=== PATIENT | male | born 1960 | race Caucasian/White ===

== ENCOUNTER → 2019-02-07 08:07 | Outpatient (CLI) | payer OTHER, MEDICARE, SELFPAY ==
--- NOTE | 2019-02-07 08:09 | CA_ITS ---
PROCEDURE: 2-D M-mode and color Doppler study INDICATIONS FOR THE TEST: Chest pain COPD Heart Murmur Tobacco Smoking Palpitations Fatigue Syncope Edema HypertensionXDiabetes Mellitus Rheumatic Fever SOB GARCIA Obesity HyperlipidemiaX Family History HD Additional History AV DISEASE,PP,MR,TR,SSS,CIRILO PATIENT INFORMATION HEIGHT: 75 WEIGHT:242 GENDER: Male B/P:137/78 2-D/M-MODE INTERPRETATION: 2-D MEASUREMENTS OBSERVED VALUES IN CMS Right Ventricular Dimension (RVDd) 2.8 Interventricular Septum (Thickness)(IVsd) .9 Left Ventricular Internal Dimensions(LVIDd) 5.4 Left Ventricular Posterior Wall (Thickness)(LVPWd) 1.0 Aortic Root 3.5 Aortic Cusp Separation 1.1 Left Atrial Dimensions (LAD) 4.1 2D 1. Left atrium is mildly enlarged, left ventricle is normal size, mild concentric left ventricular hypertrophy, visually estimated ejection fraction 55% with no regional wall motion abnormality. 2. The right atrium and right ventricle are mildly enlarged with normal contractility, there is pacemaker lead seen right atrium and right ventricle. 3. The aortic valve is thickened and calcified with mild restriction the leaflet mobility. 4. The mitral and tricuspid valves are minimally thickened. 5. The pulmonic valve is poorly visualized. 6. No significant pericardial effusion noted. DOPPLER INTERROGATION: 1. The maximum aortic out flow velocity recorded study is 2.9 m/s, resulting in a mean gradient across valve of 16 mmHg this is consistent with mild aortic stenosis, there is mild aortic insufficiency present. 2. The mitral inflow velocity within normal range, there is no mitral stenosis, there is mild mitral regurgitation. Grade 1 diastolic dysfunction seen without tissue Doppler evidence of raised left atrial pressure. 3. Mild tricuspid regurgitation, tricuspid regurgitation jet velocity is inadequate for calculation of the right ventricular systolic pressure. CONCLUSION: 1. Mildly enlarged left atrium, normal left ventricular size, mild concentric left ventricular hypertrophy, visually estimated ejection fraction 55% with no regional wall motion abnormality, grade 1 diastolic dysfunction seen without tissue Doppler evidence of raised left atrial pressure. 2. Thickened and calcified aortic valve with mean gradient across valve of 16 mmHg represents mild aortic stenosis, there is mild aortic insufficiency. 3. Mild mitral and tricuspid regurgitation 4. No significant pericardial effusion noted.
--- NOTE | 2019-02-07 08:09 | CI_ITS ---
Cerebrovascular Exam Indications: Follow-up carotid 433.10. Hx of right ICA occlusion IMPRESSIONS 1. The bilateral vertebral arteries are patent with normal antegrade flow. 2. Study suggests 100% stenosis involving the right internal carotid artery. 3. Study suggests less than 20% stenosis involving the left internal carotid artery. History: Risk factors: Extobacco use. Hypertension. Hyperlipidemia. Labs, prior tests, procedures, and surgery: Right endarterectomy. 2002 Left endarterectomy. 2018 Labs, prior tests, procedures, and surgery: Right endarterectomy. 2002 Left endarterectomy. 2017 Carotid duplex study. Complete study and Doppler flow study including spectral analysis, color and shearer scale imaging. Height: Height: 190.5cm. Height: 75in. Weight: Weight: 109.8kg. Weight: 241.5lb. Body mass index: BMI: 30.2kg/m^2. Body surface area: BSA: 2.43m^2. Location: Vascular laboratory. Patient status: Outpatient. Tables: Arterial flow: + +--------+--------+ Location V sys V ed + +--------+--------+ Right CCA - proximal 161cm/s 24.4cm/s + +--------+--------+ Right CCA - distal 119cm/s 15.7cm/s + +--------+--------+ Right ECA 182cm/s -------- + +--------+--------+ Right vertebral 87.5cm/s 25.5cm/s + +--------+--------+ Left CCA - proximal 131cm/s 32.5cm/s + +--------+--------+ Left CCA - distal 121cm/s 24.1cm/s + +--------+--------+ Left ECA 185cm/s 30.6cm/s + +--------+--------+ Left ICA - proximal 77.3cm/s 23.1cm/s + +--------+--------+ Left ICA - mid 83cm/s 31cm/s + +--------+--------+ Left ICA - distal 69.5cm/s 27.9cm/s + +--------+--------+ Left vertebral 55.4cm/s 17.4cm/s + +--------+--------+ Velocity ratios: + + + + Left, V sys Left, V ed + + + + Max ICA/dist CCA 0.69 1.29 + + + + (Report amended ) Electronically signed by: Tae Tracy [id number]
== END ==
PROVIDERS: PCP Family Medicine; Visit Provider Internal Medicine
DX: I65.23 Occlusion and stenosis of bilateral carotid arteries (principal); I34.0 Nonrheumatic mitral (valve) insufficiency; I07.1 Rheumatic tricuspid insufficiency; G47.33 Obstructive sleep apnea (adult) (pediatric); I10 Essential (primary) hypertension; I11.9 Hypertensive heart disease without heart failure; I49.5 Sick sinus syndrome; Z95.0 Presence of cardiac pacemaker; Z79.899 Other long term (current) drug therapy; I35.8 Other nonrheumatic aortic valve disorders
CPT/HCPCS: 93306; 93880

== ENCOUNTER → 2021-12-15 11:37 | Outpatient (CLI) | payer OTHER, MEDICARE, SELFPAY ==
[2021-12-15 12:45] LABS: Basophils # 0.1 K/mm3 (0-0.2); Basophils % 1.2 % (0.1-2.0); Eosinophils # 0.3 K/mm3 (0.0-0.4); Eosinophils % 2.5 % (0.1-12.0); Hematocrit 37.9 % (42.0-52.0); Hemoglobin 12.2 g/dL (14.1-18.0); Lymphocytes # 2.3 K/mm3 (0.7-4.5); Lymphocytes % 19.9 % (10-50); Mean Corpuscular HGB Conc 32.3 g/dL (31.8-35.4); Mean Corpuscular Hemoglobin 29.6 pg (27.0-31.2); Mean Corpuscular Volume 91.8 fl (80-94); Mean Platelet Volume 7.7 fl (7.4-10.4); Monocytes # 0.8 K/mm3 (0.1-1.0); Monocytes % 7.3 % (1.7-9.3); Neutrophils # 7.8 K/mm3 (1.8-7.8); Neutrophils % 69.1 % (37.0-80.0); Platelet Count 332 K/mm3 (142-424); Red Blood Count 4.12 M/mm3 (4.60-6.20); Red Cell Distribution Width 14.2 % (11.5-17.5); White Blood Count 11.4 K/mm3 (4.8-10.8)
[2021-12-15 12:57] LABS: Chloride 101 mmol/L (98-107); Potassium 4.3 mmoL/L (3.5-5.1); Sodium 138 mmol/L (136-145)
[2021-12-15 12:59] LABS: Bilirubin,Unconjugated 0.3 mg/dL (0.0-1.1); Blood Urea Nitrogen 19 mg/dl (9-20); Estimated Glomerular Filt Rate 99 ml/min (>60); GFR (African American) 119 ML/MIN (>60)
[2021-12-15 13:00] LABS: Alanine Aminotransferase 16 U/L (12-78); Alkaline Phosphatase 84 U/L (38-126); Anion Gap 9.3 mEq/L (5-15); Aspartate Amino Transferase 18 U/L (17-59); Bilirubin,Direct 0.1 mg/dl (0.0-0.4); Bilirubin,Indirect 0.3 mg/dL (0.0-0.9); Bilirubin,Total 0.4 mg/dl (0.2-1.3); Calcium 9.7 mg/dl (8.4-10.2); Carbon Dioxide 32 mmol/L (22.0-30.0); Cholesterol 252 mg/dl (140-200); Glucose 140 mg/dl (74-100); HDL Cholesterol 42 mg/dl (40-60); Magnesium 1.9 mg/dl (1.6-2.3); Total Protein,Serum 6.6 g/dl (6.3-8.2); Triglycerides 192 mg/dl (30-150); VLDL Cholesterol 38 mg/dL (0-40)
[2021-12-15 13:12] LABS: Direct LDL Cholesterol 159.29 mg/dL (100-129)
[2021-12-15 13:17] LABS: Free T4 (Free Thyroxine) 1.13 ng/dl (0.78-2.19)
[2021-12-15 13:31] LABS: Thyroid Stimulating Hormone 1.55 uIU/mL (0.465-4.68)
== END ==
PROVIDERS: Visit Provider Nurse Practitioner
DX: I07.1 Rheumatic tricuspid insufficiency (principal); I10 Essential (primary) hypertension; I11.9 Hypertensive heart disease without heart failure; I34.0 Nonrheumatic mitral (valve) insufficiency; I35.9 Nonrheumatic aortic valve disorder, unspecified; I49.5 Sick sinus syndrome; I65.29 Occlusion and stenosis of unspecified carotid artery; I67.2 Cerebral atherosclerosis; G47.33 Obstructive sleep apnea (adult) (pediatric)
CPT/HCPCS: 36415; 80048; 80061; 80076; 83735; 84439; 84443; 85025

== ENCOUNTER → 2022-06-09 09:41 | Outpatient (CLI) | payer MEDICARE, MEDICAID, SELFPAY ==
--- NOTE | 2022-06-09 09:42 | CA_ITS ---
FINAL REPORT TECHNIQUE: Grayscale, color Doppler and duplex Doppler ultrasound of the kidneys, aorta and renal arteries was performed. Multiple velocities were measured. CLINICAL HISTORY: HTN FINDINGS: Aorta velocity: 46 cm/sec Right kidney: 11.5 cm. No evidence of hydronephrosis or mass. Right intrarenal RI: .56 Right renal artery velocity: 150 cm/sec. Right RAR (Renal artery-Aortic Ratio): 3.25 Left Kidney: 12.3 cm. No evidence of hydronephrosis or mass. Left intrarenal RI: .70 Left renal artery velocity: 170 cm/sec. Left RAR (Renal Artery-Aortic Ratio): 3.67 IMPRESSION: Greater than 60% bilateral renal artery stenosis. Recommend CTA or catheter angiogram to better evaluate. Reviewed, Interpreted and Dictated by Salinas Kohli III, MD Transcribed by Delia Aldridge Authenticated and [facility]
--- NOTE | 2022-06-09 10:41 | US_ITS ---
FINAL REPORT TECHNIQUE: Sonographic images were obtained of the retroperitoneum. CLINICAL HISTORY: I07.1 - Rheumatic tricuspid insufficiency FINDINGS: The right kidney measures 11.3 cm. The left kidney measures 11.7 cm. There is a lower pole left renal cyst measuring up to 3 cm. The spleen is mildly enlarged and measures 13.9 cm. IMPRESSION: Left renal cyst. Reviewed, Interpreted and Dictated by Salinas Kohli III, MD Transcribed by Tj Brower Authenticated and [facility]
== END ==
PROVIDERS: PCP Family Medicine; Visit Provider Physician Assistant
DX: E78.2 Mixed hyperlipidemia (principal); G47.33 Obstructive sleep apnea (adult) (pediatric); I07.1 Rheumatic tricuspid insufficiency; I34.0 Nonrheumatic mitral (valve) insufficiency; I35.9 Nonrheumatic aortic valve disorder, unspecified; I49.5 Sick sinus syndrome; I65.23 Occlusion and stenosis of bilateral carotid arteries; Z95.0 Presence of cardiac pacemaker; I10 Essential (primary) hypertension
CPT/HCPCS: 76770; 93976

== ENCOUNTER 2022-06-23 08:25 | Day surgery (SDC) | payer MEDICARE, MEDICAID, SELFPAY ==
[2022-06-23] VITALS (14 sets, daily range): BP systolic 132–190; BP diastolic 81–111; PULSE 60; RESP 13–20; TEMP 36.8; O2SAT 95–99; BMI 29.2
--- NOTE | 2022-06-23 07:54 | IR_ITS ---
APPROVED REPORT Patient Location: Outpatient Center Mgr: CAMDEN Nieves RT (R) PROCEDURES Bilateral selective renal angiography INDICATION Severe hypertension, Abnormal renal duplex Informed consent was obtained prior to the procedure. COMPLICATIONS None Estimated Blood Loss: Less than 10 mls TECHNIQUE 1% lidocaine used to anesthetize the right femoral groin. The right femoral artery was accessed via the Seldinger technique. A 4 Emirati sheath was placed in the right femoral artery. The JR4 catheter was used to selectively intubate each renal artery. At the end of the diagnostic angiogram the patient was transferred to the postop holding area in stable condition for sheath removal. ANGIOGRAPHIC RESULTS Bilateral renal arteries are singular normal IMPRESSION Normal renal arteries PLAN 1. Continue treatment for essential hypertension Electronically signed by : Arash Kim MD 06/23/2022 11:15:16
[2022-06-23 09:01] LABS: Basophils # 0.1 K/mm3 (0-0.2); Basophils % 0.7 % (0.1-2.0); Eosinophils # 0.2 K/mm3 (0.0-0.4); Eosinophils % 1.3 % (0.1-12.0); Hematocrit 41.1 % (42.0-52.0); Hemoglobin 13.2 g/dL (14.1-18.0); Lymphocytes # 2.3 K/mm3 (0.7-4.5); Mean Corpuscular HGB Conc 32.1 g/dL (31.8-35.4); Mean Corpuscular Hemoglobin 30.9 pg (27.0-31.2); Mean Corpuscular Volume 96.2 fl (80-94); Mean Platelet Volume 8.1 fl (7.4-10.4); Monocytes # 0.8 K/mm3 (0.1-1.0); Monocytes % 7.2 % (1.7-9.3); Neutrophils # 7.7 K/mm3 (1.8-7.8); Neutrophils % 69.6 % (37.0-80.0); Platelet Count 276 K/mm3 (142-424); Red Blood Count 4.27 M/mm3 (4.60-6.20); Red Cell Distribution Width 12.5 % (11.5-17.5); White Blood Count 11.1 K/mm3 (4.8-10.8)
[2022-06-23 09:25] LABS: Chloride 102 mmol/L (98-107)
[2022-06-23 09:26] LABS: Sodium 143 mmol/L (136-145)
[2022-06-23 09:29] LABS: Blood Urea Nitrogen 25 mg/dl (9-20); Calcium 9.2 mg/dl (8.4-10.2); Carbon Dioxide 32 mmol/L (22.0-30.0); Creatinine Clearance Estimated 131 mL/min (50-200); Estimated Glomerular Filt Rate 86 ml/min (>60); GFR (African American) 104 ML/MIN (>60); Glucose 142 mg/dl (74-100)
== END 2022-06-23 13:59 | disposition home or self-care (01) ==
PROVIDERS: PCP Family Medicine; Visit Provider Internal Medicine
DX: E78.2 Mixed hyperlipidemia (principal); G47.33 Obstructive sleep apnea (adult) (pediatric); I07.1 Rheumatic tricuspid insufficiency; I11.9 Hypertensive heart disease without heart failure; I34.0 Nonrheumatic mitral (valve) insufficiency; I35.9 Nonrheumatic aortic valve disorder, unspecified; I65.23 Occlusion and stenosis of bilateral carotid arteries; I67.2 Cerebral atherosclerosis; I70.1 Atherosclerosis of renal artery; Z79.899 Other long term (current) drug therapy; I49.5 Sick sinus syndrome; Z95.0 Presence of cardiac pacemaker
CPT/HCPCS: 36252; 36415; 80048; 85025; 99152; C1725; C1769; J1644; Q9967

== ENCOUNTER → 2022-10-22 10:55 | Outpatient (CLI) | payer MEDICARE, MEDICAID, SELFPAY ==
[2022-10-22 12:05] LABS: Anion Gap 10.5 mEq/L (5-15); Blood Urea Nitrogen 19 mg/dl (9-20); Calcium 9.2 mg/dl (8.4-10.2); Carbon Dioxide 30 mmol/L (22.0-30.0); Chloride 102 mmol/L (98-107); Estimated Glomerular Filt Rate 76 ml/min (>60); GFR (African American) 92 ML/MIN (>60); Glucose 118 mg/dl (74-100); Potassium 4.5 mmoL/L (3.5-5.1); Sodium 138 mmol/L (136-145)
== END ==
PROVIDERS: PCP Family Medicine; Visit Provider Nurse Practitioner Family
DX: E78.2 Mixed hyperlipidemia (principal); I10 Essential (primary) hypertension; I11.9 Hypertensive heart disease without heart failure; I65.23 Occlusion and stenosis of bilateral carotid arteries; Z95.0 Presence of cardiac pacemaker
CPT/HCPCS: 36415; 80048

== ENCOUNTER → 2022-10-26 15:02 | Outpatient (CLI) | payer MEDICARE, MEDICAID, SELFPAY ==
--- NOTE | 2022-10-26 15:03 | CA_ITS ---
FINAL REPORT CLINICAL HISTORY: DAT,PRIOR LT ENDARDECTOMY,HX TOTAL OCCLUSION RT ICA,HTN FINDINGS: An ultrasound of the carotid arteries was performed. Duplex Doppler evaluation with spectral analysis was performed. The peak systolic velocity of the right common carotid artery is 52 cm/s. There is occlusion of the ICA. The right vertebral artery is patent with antegrade flow. The peak systolic velocity of the left common carotid artery is 99 cm/s. The peak systolic velocity of the left internal carotid artery is 98 cm/s and end diastolic velocity 40 cm/s. A small amount of plaque is present. The left external carotid artery is patent. The left vertebral artery is patent with antegrade flow. ICA/CCA ratio: 1.1 Bilateral patent vertebral arteries with antegrade flow. IMPRESSION: Occlusion of the right ICA. Less than 50% left carotid stenosis. Reviewed, Interpreted and Dictated by Francisco Valentino MD Transcribed by Tj Brower Authenticated and [facility]
== END ==
PROVIDERS: PCP Family Medicine; Visit Provider Physician Assistant
DX: E78.2 Mixed hyperlipidemia (principal); I10 Essential (primary) hypertension; I11.9 Hypertensive heart disease without heart failure; I65.23 Occlusion and stenosis of bilateral carotid arteries; R09.89 Other specified symptoms and signs involving the circulatory and respiratory systems; Z95.0 Presence of cardiac pacemaker
CPT/HCPCS: 93880

== ENCOUNTER 2023-12-08 10:25 | Outpatient (CLI) | payer MEDICARE, MEDICAID, SELFPAY ==
--- NOTE | 2023-12-08 10:25 | CA_ITS ---
FINAL REPORT CLINICAL HISTORY: Right ICA occlusion, H/o of bilateral CEA's COMPARISON: 10/26/2022 FINDINGS: RIGHT CAROTID: CCA PSV -65 cm/sec The right internal carotid artery is occluded, as was seen on the prior ultrasound of 10/26/2022 Comments: Known occlusion of the right internal carotid artery. LEFTCAROTID: CCA PSV -150 cm/sec ICA PSV -102 cm/sec ICA/CCA PSV ratio -1.1. Comments: Moderate soft plaque disease is noted. Antegrade flow is seen within the vertebral arteries. IMPRESSION: Known right internal carotid artery occlusion. Less than 50% stenosis left carotid artery, with moderate soft plaque. Antegrade flow bilateral vertebral arteries Reviewed, Interpreted and Dictated by Rogelio Gaona MD Transcribed by hSahla Agrawal Authenticated and [facility]
== END 2023-12-08 23:59 | disposition home or self-care (01) ==
LOC: RT 10:25
PROVIDERS: Visit Provider Nurse Practitioner Family
DX: I65.23 Occlusion and stenosis of bilateral carotid arteries (principal); Z87.891 Personal history of nicotine dependence
CPT/HCPCS: 93880

== ENCOUNTER 2024-06-26 13:45 | Outpatient (CLI) | payer MEDICARE, MEDICAID, SELFPAY ==
[2024-06-26 14:11] LABS: Basophils # 0.1 K/mm3 (0-0.2); Basophils % 0.6 % (0.1-2.0); Eosinophils # 0.1 K/mm3 (0.0-0.4); Eosinophils % 0.9 % (0.1-12.0); Hematocrit 40.3 % (42.0-52.0); Hemoglobin 13.9 g/dL (14.1-18.0); Lymphocytes # 2.5 K/mm3 (0.7-4.5); Lymphocytes % 24.2 % (10-50); Mean Corpuscular HGB Conc 34.6 g/dL (31.8-35.4); Mean Corpuscular Hemoglobin 32.1 pg (27.0-31.2); Mean Corpuscular Volume 92.9 fl (80-94); Mean Platelet Volume 7.9 fl (7.4-10.4); Monocytes # 0.9 K/mm3 (0.1-1.0); Monocytes % 8.4 % (1.7-9.3); Neutrophils # 6.8 K/mm3 (1.8-7.8); Neutrophils % 65.8 % (37.0-80.0); Platelet Count 265 K/mm3 (142-424); Red Blood Count 4.33 M/mm3 (4.60-6.20); Red Cell Distribution Width 12.7 % (11.5-17.5); White Blood Count 10.3 K/mm3 (4.8-10.8)
[2024-06-26 14:51] LABS: Alanine Aminotransferase 27 U/L (12-78); Albumin Level 4.6 g/dl (3.5-5.0); Alkaline Phosphatase 86 U/L (38-126); Anion Gap 12.2 mEq/L (5-15); Aspartate Amino Transferase 23 U/L (17-59); Bilirubin,Direct 0.3 mg/dl (0.0-0.4); Bilirubin,Indirect 0.3 mg/dL (0.0-0.9); Bilirubin,Total 0.6 mg/dl (0.2-1.3); Bilirubin,Unconjugated 0.3 mg/dL (0.0-1.1); Blood Urea Nitrogen 17 mg/dl (9-20); Calcium 9.4 mg/dl (8.4-10.2); Carbon Dioxide 30 mmol/L (22.0-30.0); Chloride 103 mmol/L (98-107); Chol/HDL Ratio 3.5 (1-3.5); Cholesterol 137 mg/dl (140-200); Estimated Glomerular Filt Rate 86 ml/min (>60); GFR (African American) 103 ML/MIN (>60); Glucose 123 mg/dl (74-100); HDL Cholesterol 39 mg/dl (40-60); Potassium 4.2 mmoL/L (3.5-5.1); Sodium 141 mmol/L (136-145); Total Protein,Serum 7.1 g/dl (6.3-8.2); Triglycerides 201 mg/dl (30-150); VLDL Cholesterol 40 mg/dL (0-40)
[2024-06-26 15:02] LABS: Direct LDL Cholesterol 73.39 mg/dL (100-129)
[2024-06-26 15:08] LABS: Free T4 (Free Thyroxine) 1.04 ng/dl (0.78-2.19)
[2024-06-26 15:21] LABS: Thyroid Stimulating Hormone 1.71 uIU/mL (0.465-4.68)
== END 2024-06-26 23:59 | disposition home or self-care (01) ==
LOC: LAB 13:48
PROVIDERS: PCP Family Medicine; Visit Provider Physician Assistant
DX: I10 Essential (primary) hypertension (principal); E78.2 Mixed hyperlipidemia; I65.23 Occlusion and stenosis of bilateral carotid arteries; I67.2 Cerebral atherosclerosis
CPT/HCPCS: 36415; 80048; 80061; 80076; 84439; 84443; 85025

== ENCOUNTER 2025-07-26 12:43 | Outpatient (CLI) | payer MEDICARE, MEDICAID, SELFPAY ==
--- OUTSIDE RECORDS SUMMARY | 2025-07-10 13:15 | XMS_ITS | Encounter Summary ---
Author Organization [facility] Address [address] [place] [address] Care Team Providers Care Substation Maintenance Technician Name Role Phone JudeJohn rodriguez Primary Care Provider [phone] Melissa Barron MD Unavailable Eli Echevarria MA Unavailable Unavailable Reason for Visit * Reason Comments Back Pain Encounter Details Date Type Department Care Team (Late st Contact Info) Description 07/10/2025 1:15 PM EST Treatment [facility] [address] [address], [address] [place] [address] Yue Kendrick MD [address] [facility] [address] [place] [address] Osteoarthritis of spine with radiculopathy, lumbar region Social History Tobacco Use Types Packs/Day Years Used Date Smoking Tobacco: Former Cigarettes 4 25 0 11/28/1982 - 11/29/2007 Smokeless Tobacco: Never Comments:quit 2 years ago Alcohol Use Standard Drinks/Week Comments No 0 (1 standard drink = 0.6 oz pur e alcohol) PHQ-2 Answer Date Recorded PHQ-2 SCORE 0 07/10/2025 Sex and Gender Information Value Date Recorded Sex Assigned at Not on file Legal Sex Male 10:01 PM EST Gender Identity Not on file Sexual Orientation Not on file Occupation Industry Job Start Date Job End Date disability Not on file Not on file Not on file documented as of this encounter Last Filed Vital Signs Vital Sign Reading Time Taken Comments Blood Pressure 167/79 07/10/2025 1:16 PM EST Pulse 60 07/10/2025 1:16 PM EST Temperature - - Respiratory Rate - - Oxygen Saturation - - Inhaled Oxygen Concentration - - Weight 114.3 kg (252 lb) 07/10/2025 1:15 PM EST Height 190.5 cm (6' 3 ) 07/10/2025 1:15 PM EST Body Mass Index 31.5 07/10/2025 1:15 PM EST documented in this encounter Functional Status documented as of this encounter Mental Status * Question Answer Entry Date Author Pain Level 2 07/10/2025 1:15 PM EST Thomp son, CELESTINE Reeder documented in this encounter Progress Notes * Yue Kendrick MD - 07/10/2025 1:15 PM EST RE: Marvin Staton : 1960 REFERRING PROVIDER: No ref. provider found PRIMARY CARE PROVIDER: John Schaefer DO HISTORY OF PRESENT ILLNESS: Mr. Staton was seen in follow up at the [facility] pain center. LUIS MIGUEL report reviewed. He returns today complaining of pain in the lower lumbar region. Most of his pain is in the axial spine. Pain is associated with stiffness and spasms. He continues to benefit from the hydrocodone. Hedenies any side effects from his medications. Current medication regimen keeps him functional. He is ambulating without an assistive device. He is independent with ADLs. He denies any change in his medications. Exacerbating factors include:lifting, Standing, walking, overhead activity Alleviating Factors: medications, rest, heat, change in position Since his last visit, he denies any falls or loss of balance. Since his last visit, he denies progressive weakness or change in bowel bladder function. pain scale current is 2/10. Worst pain: 6/10. Least pain: 2/10. Amount of pain relief obtained from current pain relievers enough to make a real difference: yes Prescription monitoring report: indicate appropriate behavior EMG 02/13/20 B/L L4/5 LR Past Medical History: Diagnosis Date Atherosclerosis Bradycardia CAD (coronary artery disease) Carotid artery stenosis COVID-2020 History of home oxygen therapy 1-1.5 LITERS PRN HLD (hyperlipidemia) HTN (hypertension) Lumbago Sleep apnea CPAP Stroke (HCC) T.I.A. Past Surgical History: Procedure Laterality Date AORTOGRAM WITH RUNOFF N/A 06/19/2010 AORTOGRAM WITH RUNOFF performed by Arash Kim MD at [facility] RN POST PARTUM HX CARDIAC CATHETERIZATION HX CAROTID ENDARTERECTOMY HX PERMANENT PACEMAKER LEFT HEART CATH N/A 06/19/2010 LEFT HEART CATH performed by Arash Kim MD at [facility] RN POST PARTUM Family History Problem Relation Name Age of Onset Heart Disease Mother cabg Cancer Sister lung cancer Cancer Brother lung cancer Cancer Brother lung cancer Heart Disease Brother OR Hypertension Daughter Social History Socioeconomic History Marital status: Spouse name: Not on file Number of children: Not on file Years of education: Not on file Highest education level: Not on file Occupational History Occupation: disability Comment: 2004 Tobacco Use Smoking status: Former Current packs/day: 0.00 Average packs/day: 4.0 packs/day for 25.0 years (100.0 ttl pk-yrs) Types: Cigarettes Start date: 11/28/1982 Quit date: 11/29/2007 Years since quittin.6 Smokeless tobacco: Never Tobacco comments: quit 2 years ago Substance and Sexual Activity Alcohol use: No Drug use: No Sexual activity: Not on file Other Topics Concern Not on file Social History Narrative Not on file Social Drivers of Health Financial Resource Strain: Not on file Food Insecurity: Not on file Transportation Needs: Not on file Physical Activity: Not on file Stress: Not on file Social Connections: Not on file Intimate Partner Violence: Not on file Housing Stability: Not on file Current Outpatient Medications Medication Sig Dispense Refill HYDROcodone-acetaminophen (NORCO) 7.5-325 mg per tablet Take 1 Tablet by mouth Every 6 hours as needed for Pain for up to 30 days. Do not fill until 06/15/25 120 Tablet 0 amLODIPine (NORVASC) 5 mg tablet Take 5 mg by mouth Once Daily. potassium citrate (UROCIT-K) 10 mEq Take 10 mEq by mouth Three times a day. sucralfate (CARAFATE) 1 gram tablet Take 1 g by mouth Twice a day. folic acid (FOLVITE) 1 mg tablet Take 1 mg by mouth Once Daily. losartan (COZAAR) 25 mg Take 25 mg by mouth Once Daily. ipratropium/albuterol sulfate (COMBIVENT IN) Take by inhalation. carvedilol (COREG) 6.25 mg tablet Take 25 mg by mouth Twice a day. atorvastatin (LIPITOR) 80 mg tablet Take 1 Tab by mouth Daily. 30 Tab 9 No current facility-administered medications for this visit. No Known Allergies Review of Systems: Constitutional: negative for fevers, chills Eyes: negative for visual disturbance, redness Ears, nose, mouth, throat, and face: negative for epistaxis, sore throat Respiratory: negative for cough, dyspnea on exertion Cardiovascular: negative for chest pain, palpitations Gastrointestinal: negative for nausea, vomiting Genitourinary:negative for dysuria, urinary incontinence Integument/breast: negative for rash, skin color change Hematologic/lymphatic: negative for easy bruising, bleeding Musculoskeletal + for myalgias, arthralgias Neurological: negative for dizziness, gait problems Behavioral/Psych: negative for anxiety and depression PHYSICAL EXAM: Vitals: There were no vitals taken for this visit. BODY HABITUS: Well developed, well nourished. MENTAL STATUS: Alert, oriented and cooperative. Affect is full. HEAD: Normocephalic, atraumatic. No tenderness, spasm, or asymmetry. CERVICAL SPINE: Straight with a normal lordosis. Range of motion is full and painful with extension. There is mild tenderness to palpation. Positive spasms. SHOULDERS: Non-tender. Contour is symmetric. Scapular placement is symmetric. Range of motion is full and painless in all planes. There is no tenderness to palpation. There are no signs of impingement. UPPER EXTREMITIES: Non tender to palpation bilaterally. Joint alignment is normal without effusion.Elbow, wrist, and hand range of motion is full and painless bilaterally. THORACIC SPINE: Mod tenderness. + spasm. LUMBAR SPINE: Forward flexion to 65 degrees is painful. Extension to 20 degrees past neutral is painful. Lateral bending and rotation is restricted and painful. There is mild tenderness to palpation.Agustín's test is negative bilaterally. Facet provocative maneuvers are positive bilaterally. Positive spasms. LOWER EXTREMITIES: No tenderness to palpation. There is no edema. There is no atrophy. There is no asymmetry. Hip, knee, and ankle range of motion is full and painless bilaterally. NEUROLOGIC: Muscle tone is normal. There is no ataxia or dysmetria. Muscle stretch reflexes are 1+ and symmetric at the biceps, triceps, and brachioradialis, patella, and achilles. Muscle strength is5/5 in the upper and lower extremities muscle groups bilaterally. SLR is + on the right. Hernández's is negative bilaterally. Spurling's is negative bilaterally. Phalen's is negative bilaterally. Tinel's is negative bilaterally. Sensory exam shows deficits to light touch, pinprick L4/5 dermatome GAIT: Normal base of support. Normal dorsiflexion. Swing-through pattern. No antalgia. No assistivedevice. IMPRESSIONS: 1. History of HNP L5-S1 2. Lumbar radiculitis 3. Lumbar DDD 4. Status post right CEA 5. Sacroiliac pain 6. Spasms 7. Facet disorder RECOMMENDATIONS: 1. DIAGNOSTIC STUDIES: None 2. MEDICATIONS:D/C MS Contin 15 mg one tablet p.o. Q.8 hours (nationwide shortage). [place] 7.5 mg every 6 hours LUIS MIGUEL report reviewed. UDS 03/13/25 consistent. 3. INJECTIONS: not a candidate for injections as he is on anticoagulants with HX carotid stenosis 4. PHYSICAL THERAPY: Continue home exercise program as tolerated. 5. REFERRALS: None 6. SCHEDULING: Follow up in 2 months. Yue Kendrick M.D., MD 07/09/2025 6:03 AM documented in this encounter Plan of Treatment Upcoming Encounters Date Type Department Care Team (Late st Contact Info) Description 09/06/2025 2:00 PM EST Treatment [facility] [address] [place] [address], [address] Floor, [address] [place] [address] Yue Kendrick MD [address] [facility] [address] [place] [address] documented as of this encounter Visit Diagnoses Diagnosis Osteoarthritis of spine with radiculopathy, lumbar region documented in this encounter Care Teams Substation Maintenance Technician Relationship Specialty Start Date End Date John Schaefer DO [address] [place] [address] PCP - General Family Medicine 01/24/10 Melissa Barron MD [address] [place] [address] JUANY OLIVARES [id number] Pulmonary Disease 06/16/22 Eli Echevarria MA 08/11/22 documented as of this encounter
--- OUTSIDE RECORDS SUMMARY | 2025-07-26 12:52 | XMS_ITS | Encounter Summary ---
Author Organization [facility] Address [address] [place] [address] Care Team Providers Care Celebrity Manager Name Role Phone John Schaefer Primary Care Provider [phone] Melissa Barron MD Unavailable Eli Echevarria MA Unavailable Unavailable Reason for Visit * Reason Onset Date Comments Medication - Prior Authorization 09/19/2018 Encounter Details Date Type Department Care Team (Late st Contact Info) Description 09/19/2018 Telephone [facility] [address], [address] [place] [address] Yue Kendrick MD [address] [facility] [place] [address] [address] Medication - Prior Authorization Social History Tobacco Use Types Packs/Day Years Used Date Smoking Tobacco: Former Cigarettes 4 25 0 03/28/1986 - 03/28/2011 Smokeless Tobacco: Never Comments:quit 2 years ago Alcohol Use Standard Drinks/Week Comments No 0 (1 standard drink = 0.6 oz pur e alcohol) Sex and Gender Information Value Date Recorded Sex Assigned at Not on file Legal Sex Male 10:01 PM EST Gender Identity Not on file Sexual Orientation Not on file Occupation Industry Job Start Date Job End Date disability Not on file Not on file Not on file documented as of this encounter Miscellaneous Notes * Telephone Encounter - Namrata Denise RN - 09/19/2018 11:16 AM EST No answer. PA faxed to [facility]. * Telephone Encounter - Jose Francisco Tapia - 09/19/2018 8:07 AM EST Pt called in wanting to speak to a nurse. Wants a return call at [phone]. Calling to check on status of PA on morphine requested on 09/13/18. Please advise. documented in this encounter Plan of Treatment Upcoming Encounters Date Type Department Care Team (Late st Contact Info) Description 09/06/2025 2:00 PM EST Treatment [facility] [address] [place] [address], 2nd Floor, [address] [place] [address] Yue Kendrick MD [address] [facility] [address] [place] [address] [address] documented as of this encounter Visit Diagnoses Not on filedocumented in this encounter Care Teams Celebrity Manager Relationship Specialty Start Date End Date John Schaefer DO [address] [place] [phone] PCP - General Family Medicine 01/24/10 Melissa Barron MD [address] [place] [address] Pulmonary Disease 06/16/22 Eli Echevarria MA 08/11/22 documented as of this encounter
--- OUTSIDE RECORDS SUMMARY | 2025-07-26 12:52 | XMS_ITS | Encounter Summary ---
Author Organization [facility] Address [address] [id number] Care Team Providers Care Brine Tank Operator Name Role Phone John Schaefer Primary Care Provider [phone] Melissa Barron MD Unavailable Eil Echevarria MA Unavailable Unavailable Reason for Visit * Reason Onset Date Comments Medication - Prior Authorization 12/30/2017 Encounter Details Date Type Department Care Team ([facility] Contact Info) Description 12/30/2017 Telephone [facility] [address], [address] [place] [phone] Namrata Denise, piano assembler - Prior Authorization Social History Tobacco Use [...] encounter Miscellaneous Notes * Telephone Encounter - Coleen Guerrero - 01/17/2018 2:48 PM EDT Try [facility] documented in this encounter Plan of Treatment Upcoming Encounters Date Type Department Care Team ([facility] Contact Info) Description 09/06/2025 2:00 PM EST [facility] [address] Medical [place] A, 2nd Floor, [address] [place] [address] Yue Kendrick MD [address] [facility] [address] 2ND FLO[address] [place], [place] [id number] documented as of this encounter Visit Diagnoses Not on filedocumented in this encounter Care Teams Brine Tank Operator Relationship Specialty Start Date End Date John Schaefer DO [address] [place] [phone] PCP - General Family Medicine 01/24/10 Melissa Barron MD [address] [place] [address] Pulmonary Disease 06/16/22 Eli Echevarria MA 08/11/22 documented as of this encounter
--- OUTSIDE RECORDS SUMMARY | 2025-07-26 12:52 | XMS_ITS | Encounter Summary ---
Author Organization [facility] Address [address] [place] [address] Care Team Providers Care Statistical Developer Name Role Phone JudeJohn rodriguez Primary Care Provider [phone] Melissa Barron MD Unavailable Eli Echevarria MA Unavailable Unavailable Encounter Details Date Type Department Care Team (Late Contact Info) Description 06/16/2011 Telephone [facility] [address], [address] [place] [address] Amanda Wang LPN Social History Tobacco Use Types Packs/Day Years [...] encounter Miscellaneous Notes * Telephone Encounter - Amanda Wang - 06/16/2011 11:32 AM EST Pt's aware that scripts are ready for parts picker documented in this encounter Plan of Treatment Upcoming Encounters Date Type Department Care Team (Late Contact Info) Description 09/06/2025 2:00 PM EST Treatment [facility] [address] [facility], 2nd Floor, [address] [place] [address] Yue Kendrick MD [address] [facility] [address] A 2ND [place] [address] documented as of this encounter Visit Diagnoses Not on filedocumented in this encounter Care Teams Statistical Developer Relationship Specialty Start Date End Date John Schaefer DO [address] [place] [phone] PCP - General Family Medicine 01/24/10 Melissa Barron MD [address] [place] [address] Pulmonary Disease 06/16/22 Eli Echevarria MA 08/11/22 documented as of this encounter
--- OUTSIDE RECORDS SUMMARY | 2025-07-26 12:52 | XMS_ITS | Encounter Summary ---
Author Organization [facility] Address [address] [place] [address] Care Team Providers Care Lead Manufacturing Technician Name Role Phone John Schaefer Primary Care Provider [phone] Melissa Barron MD Unavailable Eli Echevarria MA Unavailable Unavailable Encounter Details Date Type Department Care Team (Late Contact Info) Description 03/13/2019 Telephone [facility] [address] [facility], 2nd Floor, [address] [place] [address] Lilli Henriquez RN Social History Tobacco Use Types Packs/Day Years [...] on file documented as of this encounter Plan of Treatment Upcoming Encounters Date Type Department Care Team (Late Contact Info) Description 09/06/2025 2:00 PM EST Treatment [facility] [address] [facility], 2nd Floor, [address] [place] [address] Yue Kendrick MD [address] [place] [place] [address] [place] [address] documented as of this encounter Visit Diagnoses Not on filedocumented in this encounter Care Teams Lead Manufacturing Technician Relationship Specialty Start Date End Date John Schaefer DO [address] [place] [phone] PCP - General Family Medicine 01/24/10 Melissa Barron MD [address] [place] [address] Pulmonary Disease 06/16/22 lEi Echevarria MA 08/11/22 documented as of this encounter
--- OUTSIDE RECORDS SUMMARY | 2025-07-26 12:52 | XMS_ITS | Encounter Summary ---
Author Organization [facility] Address [address] [id number] Care Team Providers Care Link And Link Knitting Machine Operator Name Role Phone JudeJohn rodriguez Primary Care Provider [phone] Melissa Barron MD Unavailable Eli Echevarria MA Unavailable Unavailable Reason for Visit * Reason Onset Date Comments Medications Refill 06/12/2011 Encounter Details Date Type Department Care Team (Late st Contact Info) Description 06/12/2011 Refill [facility] [address], [address] [place] [phone] Amanda Wang LPN HNP (herniated nucleus pulposus); Lumbar spondylosis Social History Tobacco Use Types Packs/Day Years [...] * Telephone Encounter - Amanda Wang - 06/12/2011 1:58 PM EDT Last appt- 04-22-11 Next appt- 07-22-11 Last tox- 03-19-11, ok documented in this encounter Plan of Treatment Upcoming Encounters Date Type Department Care Team (Late st Contact Info) Description 09/06/2025 2:00 PM EST Treatment [facility] [address] [facility] A, 2nd Floor, [address] [place] [address] Yue Kendrick MD [address] [facility] [address]ND FLOOR [place], [place] [id number] documented as of this encounter Visit Diagnoses Diagnosis HNP (herniated nucleus pulposus) Displacement of intervertebral disc, site unspecified, without myelopathy Lumbar spondylosis Lumbosacral spondylosis without myelopathy documented in this encounter Care Teams Link And Link Knitting Machine Operator Relationship Specialty Start Date End Date John Schaefer DO [address] [place] [phone] PCP - General Family Medicine 01/24/10 Melissa Barron MD [address] [place] [id number] Pulmonary Disease 06/16/22 Eli Echevarria MA 08/11/22 documented as of this encounter
--- OUTSIDE RECORDS SUMMARY | 2025-07-26 12:52 | XMS_ITS | Encounter Summary ---
Author Organization [facility] Address [address] [place] [address] Care Team Providers Care Photographic Printer Name Role Phone John Schaefer Primary Care Provider [phone] Melissa Barron MD Unavailable Eli Echevarria MA Unavailable Unavailable Encounter Details Date Type Department Care Team (Late st Contact Info) Description 09/18/2019 Telephone [facility] [address] [facility] A, 2nd Floor, [address] [place] [address] Yue Kendrick MD [address] [facility] [address] [place] [address] Social History Tobacco Use Types Packs/Day Years [...] encounter Miscellaneous Notes * Telephone Encounter - Magy Decker RN - 09/18/2019 4:00 PM EST Morphine PA sent * Telephone Encounter - Zulema Davenport - 09/18/2019 3:09 PM EST NEEDS A NURSE TO CALL ABOUT MEDS [phone] documented in this encounter Plan of Treatment Upcoming Encounters Date Type Department Care Team (Late st Contact Info) Description 09/06/2025 2:00 PM EST Treatment [facility] [address] [place] A, 2nd Floor, [address] [place] [address] Yue Kendrick MD [address] [place] [address] documented as of this encounter Visit Diagnoses Not on filedocumented in this encounter Care Teams Photographic Printer Relationship Specialty Start Date End Date John Schaefer DO [address] [place] [phone] PCP - General Family Medicine 01/24/10 Melissa Barron MD [address] [place] [address] Pulmonary Disease 06/16/22 Eli Echevarria MA 08/11/22 documented as of this encounter
--- OUTSIDE RECORDS SUMMARY | 2025-07-26 12:52 | XMS_ITS | Encounter Summary ---
Author Organization [facility] Address [address] [place] [address] Care Team Providers Care Support Architect Name Role Phone JudeJohn rodriguez Primary Care Provider [phone] Melissa Barron MD Unavailable Eli Echevarria MA Unavailable Unavailable Reason for Visit * Reason Onset Date Comments Medications Refill 12/29/2017 Encounter Details Date Type Department Care Team (Late st Contact Info) Description 12/29/2017 Telephone [facility] [address], [address] [place] [phone] Yue Kendrick MD [address] [facility] [address] [place] [address] [address] Medications Refill Social History Tobacco Use Types Packs/Day Years [...] encounter Miscellaneous Notes * Telephone Encounter - Malissa Combs - 12/29/2017 8:53 AM EDT Morphine sulfate needs a PA documented in this encounter Plan of Treatment Upcoming Encounters Date Type Department Care Team (Late st Contact Info) Description 09/06/2025 2:00 PM EST Treatment [facility] [address] [place] [address] A, 2nd Floor, [address] [place] [address] Yue Kendrick MD [address] [facility] [place] [address] [address] documented as of this encounter Visit Diagnoses Not on filedocumented in this encounter Care Teams Support Architect Relationship Specialty Start Date End Date John Schaefer DO [address] [place] [phone] PCP - General Family Medicine 01/24/10 Melissa Barron MD [address] [place] [address] Pulmonary Disease 06/16/22 Eli Echevarria MA 08/11/22 documented as of this encounter
--- OUTSIDE RECORDS SUMMARY | 2025-07-26 12:52 | XMS_ITS | Encounter Summary ---
Author Organization [facility] Address [address] [place] [address] Care Team Providers Care Autobody Technician Name Role Phone HollisJohn bautista Primary Care Provider [phone] Melissa Barron MD Unavailable Eli Echevarria MA Unavailable Unavailable Reason for Visit * Reason Onset Date Comments Medications Refill 03/07/2019 Encounter Details Date Type Department Care Team (Late st Contact Info) Description 03/07/2019 Telephone [facility] [address] [facility] A, 2nd Floor, [address] [place] [address] Yue Kendrick MD [address] [facility] [address] [place] [id number] Medications Refill Social History Tobacco Use Types [...] encounter Miscellaneous Notes * Telephone Encounter - Cindi Whitley - 03/07/2019 2:38 PM EDT Pt's called requesting a PA for morphine. [facility]ses [facility] [place]. documented in this encounter Plan of Treatment Upcoming Encounters Date Type Department Care Team (Late st Contact Info) Description 09/06/2025 2:00 PM EST Treatment [facility] [address] [place] [address] [place] A, 2nd Floor, [address] [place] [address] Yue Kendrick MD [address] [facility] [address] [place] [address] [address] documented as of this encounter Visit Diagnoses Not on filedocumented in this encounter Care Teams Autobody Technician Relationship Specialty Start Date End Date John Schaefer DO [address] [place] [phone] PCP - General Family Medicine 01/24/10 Melissa Barron MD [address] [place] [address] Pulmonary Disease 06/16/22 Eli Echevarria MA 08/11/22 documented as of this encounter
--- OUTSIDE RECORDS SUMMARY | 2025-07-26 12:52 | XMS_ITS | Encounter Summary ---
Author Organization [facility] Address [address] [id number] Care Team Providers Care Stockroom Attendant Name Role Phone John Schaefer Primary Care Provider [phone] Melissa Barron MD Unavailable Eli Echevarria MA Unavailable Unavailable Reason for Visit * Reason Onset Date Comments Medications Refill 09/16/2011 Encounter Details Date Type Department Care Team (Late st Contact Info) Description 09/16/2011 Refill [facility] [address], [address] [place] [address] Amanda Wang LPN HNP (herniated nucleus pulposus); [...] * Telephone Encounter - Amanda Wang - 09/16/2011 10:31 AM EST Last appt- 07-22-11 Next appt- 10-21-11 Last tox- 11, ok documented in this encounter Plan of Treatment Upcoming Encounters Date Type Department Care Team (Late st Contact Info) Description 09/06/2025 2:00 PM EST Treatment [facility] [address] [facility] A, 2nd Floor, [address] [place] [address] Yue Kendrick MD [address] [facility] [address] [place] [address] documented as of this encounter Visit Diagnoses Diagnosis HNP (herniated nucleus pulposus) Displacement of intervertebral disc, site unspecified, without myelopathy Lumbar spondylosis Lumbosacral spondylosis without myelopathy documented in this encounter Care Teams Stockroom Attendant Relationship Specialty Start Date End Date John Schaefer DO [address] [place] [phone] PCP - General Family Medicine 01/24/10 Melissa Barron MD [address] [place] [address] Pulmonary Disease 06/16/22 Eli Echevarria MA 08/11/22 documented as of this encounter
--- OUTSIDE RECORDS SUMMARY | 2025-07-26 12:52 | XMS_ITS | Encounter Summary ---
Author Organization [facility] Address [address] [place] [address] Care Team Providers Care Wellness Nurse Name Role Phone JudeJohn rodriguez Primary Care Provider [phone] Melissa Barron MD Unavailable Eli Echevarria MA Unavailable Unavailable Reason for Visit * Reason Onset Date Comments Medication - Prior Authorization 05/07/2016 Encounter Details Date Type Department Care Team (Late st Contact Info) Description 05/07/2016 Telephone [facility] [address], [address] [place] [address] Yue Kendrick MD [address] [facility] [place] [place] [address] [address] Medication - Prior Authorization Social History Tobacco [...] Miscellaneous Notes * Telephone Encounter - Malissa Rothman - 05/07/2016 11:31 AM EDT PA needed for Hydrocodone and Morphine documented in this encounter Plan of Treatment Upcoming Encounters Date Type Department Care Team (Late st Contact Info) Description 09/06/2025 2:00 PM EST Treatment [facility] [address] [place] [address] A, 2nd Floor, [address] [place] [address] Yue Kendrick MD [address] [place] [place] [address] [address] documented as of this encounter Visit Diagnoses Not on filedocumented in this encounter Care Teams Wellness Nurse Relationship Specialty Start Date End Date John Schaefer DO [address] [place] [phone] PCP - General Family Medicine 01/24/10 Melissa Barron MD [address] [place] [address] Pulmonary Disease 06/16/22 Eli Echevarria MA 08/11/22 documented as of this encounter
--- OUTSIDE RECORDS SUMMARY | 2025-07-26 12:52 | XMS_ITS | Encounter Summary ---
Author Organization [facility] Address [address] [place] [address] Care Team Providers Care Inhalation Therapy Aide Name Role Phone John Schaefer Primary Care Provider [phone] Melissa Barron MD Unavailable Eli Echevarria MA Unavailable Unavailable Encounter Details Date Type Department Care Team (Latest Contact Info) Description 07/10/2025 Travel Social History Tobacco Use Types Packs/Day Years [...] on file documented as of this encounter Functional Status documented as of this encounter Mental Status * Question Answer Entry Date Author Pain Level 2 07/10/2025 1:15 PM EST Lilli Quiroz RN documented in this encounter Plan of Treatment Upcoming Encounters Date Type Department Care Team (Late st Contact Info) Description 09/06/2025 2:00 PM EST Treatment [facility] [address] [facility] [facility] A, 2nd Floor, [address] [place] [address] Yue Kendrick MD [address] [facility] [address] A [address]ND FLOOR [place], [place] [id number] documented as of this encounter Visit Diagnoses Not on filedocumented in this encounter Care Teams Inhalation Therapy Aide Relationship Specialty Start Date End Date Shelton SchaefermyDO [address] [place] [phone] PCP - General Family Medicine 01/24/10 Melissa Barron MD [address] [place] [address] Pulmonary Disease 06/16/22 Eli Echevarria MA 08/11/22 documented as of this encounter
--- OUTSIDE RECORDS SUMMARY | 2025-07-26 12:52 | XMS_ITS | Encounter Summary ---
Author Organization [facility] Address [address] [place] [address] Care Team Providers Care Die Repairer Trimmer Dies Name Role Phone HollisJohn bautista Primary Care Provider [phone] Melissa Barron MD Unavailable Eli Echevarria MA Unavailable Unavailable Reason for Visit * Reason Onset Date Comments Medication - Prior Authorization 06/08/2011 Encounter Details Date Type Department Care Team (Late st Contact Info) Description 06/08/2011 Telephone [facility] [address] [place] [phone] Arash Kim MD [address] [place] [address] Medication - Prior Authorization Social History Tobacco [...] encounter Miscellaneous Notes * Telephone Encounter - Jaun Lentz LPN - 06/09/2011 12:05 PM EDT Called Insurance and got the medication approved. Called patient and left message. * Telephone Encounter - Carolyn Adames - 06/08/2011 11:07 AM EDT Pt was prescribed Cardura XL and it needs a pa from [employer]. Pharmacy #[phone] documented in this encounter Plan of Treatment Upcoming Encounters Date Type Department Care Team (Late st Contact Info) Description 09/06/2025 2:00 PM EST Treatment [facility] [address] A, 2nd Floor, [address] [place] [address] Yue Kendrick MD [address] [facility] A [address]ND FLOOR [place], [place] [address] documented as of this encounter Visit Diagnoses Not on filedocumented in this encounter Care Teams Die Repairer Trimmer Dies Relationship Specialty Start Date End Date John Schaefer DO [address] [place] [phone] PCP - General Family Medicine 01/24/10 Melissa Barron MD [address] [place] [phone] Pulmonary Disease 06/16/22 Eli Echevarria MA 08/11/22 documented as of this encounter
--- OUTSIDE RECORDS SUMMARY | 2025-07-26 12:52 | XMS_ITS | Encounter Summary ---
Author Organization [facility] Address [address] [id number] Care Team Providers Care Underwriting Clerk Name Role Phone John Schaefer Primary Care Provider [phone] Melissa Barron MD Unavailable Eli Echevarria MA Unavailable Unavailable Reason for Visit * Reason Onset Date Comments Medication - Prior Authorization 12/23/2016 Encounter Details Date Type Department Care Team ([facility] Contact Info) Description 12/23/2016 Telephone [facility] [address], [address] [place] [address] Minerva Faust, water meter mechanic - Prior Authorization Social History Tobacco Use [...] encounter Miscellaneous Notes * Telephone Encounter - Minerva Faust - 12/23/2016 10:17 AM EDT ADELSO for melissa sent to Insurance. dcr documented in this encounter Plan of Treatment Upcoming Encounters Date Type Department Care Team ([facility] Contact Info) Description 09/06/2025 2:00 PM EST Treatment [facility] [address] [place] [address] A, 2nd Floor, [address] [place] [address] Yue Kendrick MD [address] [facility] [place] [place] [address] [address] documented as of this encounter Visit Diagnoses Not on filedocumented in this encounter Care Teams Underwriting Clerk Relationship Specialty Start Date End Date John Schaefer DO [address] [place] [phone] PCP - General Family Medicine 01/24/10 Melissa Barron MD [address] [place] [address] Pulmonary Disease 06/16/22 Eli Echevarria MA 08/11/22 documented as of this encounter
--- OUTSIDE RECORDS SUMMARY | 2025-07-26 12:52 | XMS_ITS | Encounter Summary ---
Author Organization [facility] Address [address] [id number] Care Team Providers Care Marquetry Worker Name Role Phone JudeJohn rodriguez Primary Care Provider [phone] Melissa Barron MD Unavailable Eli Echevarria MA Unavailable Unavailable Encounter Details Date Type Department Care Team (Late st Contact Info) Description 03/14/2019 Telephone [facility] [address] [facility], 2nd Floor, [address] [place] [address] Magy Decker, RN Social History Tobacco Use Types Packs/Day [...] Notes * Telephone Encounter - Magy Decker LPN - 03/14/2019 3:56 PM EDT Morphine PA Sent documented in this encounter Plan of Treatment Upcoming Encounters Date Type Department Care Team (Late Contact Info) Description 09/06/2025 2:00 PM EST Treatment [facility] [address] [facility] [place] [facility], 2nd Floor, [address] [place] [address] Yue Kendrick MD [address] [facility] [place] [address] [place] [address] documented as of this encounter Visit Diagnoses Not on filedocumented in this encounter Care Teams Marquetry Worker Relationship Specialty Start Date End Date John Schaefer DO [address] [place] [phone] PCP - General Family Medicine 01/24/10 Melissa Barron MD [address] [place] [address] Pulmonary Disease 06/16/22 Eli Echevarria MA 08/11/22 documented as of this encounter
--- OUTSIDE RECORDS SUMMARY | 2025-07-26 12:52 | XMS_ITS | Clinical Summary ---
Author Organization [facility] Address [address] [place] [address] Care Team Providers Care Sawsmith Name Role Phone John Schaefer Primary Care Provider [phone] Melissa Barron MD Unavailable KitEli ellington MA Unavailable Unavailable Allergies No known active allergies Medications atorvastatin (LIPITOR) 80 mg tablet Take 1 Tab by mouth Daily. 30 Tab 9 04/26/2012 Active carvedilol (COREG) 6.25 mg tablet Take 25 mg by mouth Twice a day. Active sucralfate (CARAFATE) 1 gram tablet Take 1 g by mouth Twice a day. Active folic acid (FOLVITE) 1 mg tablet Take 1 mg by mouth Once Daily. Active losartan (COZAAR) 25 mg Take 25 mg by mouth Once Daily. Active ipratropium/albu terol sulfate (COMBIVENT IN) Take by inhalation. Active potassium citrate (UROCIT-K) 10 mEq Take 10 mEq by mouth Three times a day. Active amLODIPine (NORVASC) 5 mg tablet Take 10 mg by mouth Once Daily. Active HYDROcodone-acet aminophen (NORCO) 7.5-325 mg per tabletIndication s:Osteoarthritis of spine with radiculopathy, lumbar region Take 1 Tablet by mouth Every 6 hours as needed for Pain for up to 30 days. Do not fill until 08/14/25 120 Tablet 08/14/2025 Active HYDROcodone-acet aminophen (NORCO) 7.5-325 mg per tabletIndication s:Osteoarthritis of spine with radiculopathy, lumbar region Take 1 Tablet by mouth Every 6 hours as needed for Pain for up to 30 days. 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 08/17/2022 Overview (08/17/2022): Added automatically from request for surgery [id number] HNP (herniated nucleus pulposus) 09/22/2010 Lumbar spondylosis 09/22/2010 Degeneration of lumbar or lumbosacral interverte bral disc 09/22/2010 Displacement of lumbar inter vertebral disc without myelopathy 09/22/2010 Spasm of muscle 09/22/2010 Neuralgia, neuritis, and radiculitis, unspecifie d 09/22/2010 HTN (hypertension), benign 01/22/2010 Benign neoplasm of thyroid glands 01/22/2010 Bradycardia 01/22/2010 CAD (coronary artery disease) 01/22/2010 Coronary atherosclerosis of [place] coronary hiwot ry 01/22/2010 Carotid artery stenosis 01/22/2010 Dizziness and giddiness 01/22/2010 Lumbago 01/22/2010 HLD (hyperlipidemia) 01/22/2010 Primary pulmonary hypertension 01/22/2010 Thyroid nodule 01/22/2010 Labyrinthitis, unspecified 01/22/2010 T.I.A. 01/22/2010 Encounters Date Type Department Care Team Description 07/10/2025 1:15 PM EST Treatment [facility] [address], 2nd Floor, [address] [place] [address] Yue Kendrick MD Osteoarthritis of spine with radiculopathy, lumbar region 07/10/2025 Travel 05/08/2025 12:30 PM EDT Treatment [facility] [address] [facility], 2nd Floor, [address] [place] [address] Yue Kendrick MD Osteoarthritis of spine with radiculopathy, lumbar region 05/08/2025 Travel from Last 3 Months Family History Medical History Relation Name Comments Cancer Brother 1 lung cancer Cancer Brother 2 lung cancer Heart Disease Brother 2 PA Hypertension Daughter 2 Heart Disease Mother cabg Cancer Sister lung cancer Relation Name Status Comments Brother 1 (Age 47) PA Brother 2 Daughter 1 Alive htn Daughter 2 Mother cabg Sister Social History Tobacco Use Types Packs/Day Years Used Date Smoking Tobacco: Former Cigarettes 4 25 0 11/28/1982 - 11/29/2007 Smokeless Tobacco: Never Tobacco Cessation:Counseling Given: Not Answered Comments:quit 2 years ago Alcohol Use Standard [...] file Not on file Not on file Last Filed Vital Signs Vital Sign Reading Time Taken Comments Blood Pressure 167/79 07/10/2025 1:16 PM EST Pulse 60 07/10/2025 1:16 PM EST Temperature 36.8 C (98.2 F) 08/19/2022 1:25 PM EST Respiratory Rate 15 05/08/2025 12:32 PM EDT Oxygen Saturation 98% 10/01/2022 1:36 PM EST Inhaled Oxygen Concentration - - Weight 114.3 kg (252 lb) 07/10/2025 1:15 PM EST Height 190.5 cm (6' 3 ) 07/10/2025 1:15 PM EST Body Mass Index 31.5 07/10/2025 1:15 PM EST Plan of Treatment Upcoming Encounters Date Type Department Care Team (Late st Contact Info) Description 09/06/2025 2:00 PM EST Treatment [facility] [address] [address], 2nd Floor, [address] [place] [address] Yue Kendrick MD [address] [facility] [address] [place] [address] [place] [address] Health Maintenance Due Date Last Done Comments COLOGUARD 1961 COLONOSCOPY 1961 Colorectal Screening Combination 1961 FIT 1961 HEP C SCREENING 1961 SIGMOIDOSCOPY 1961 ANNUAL WELLNESS EXAM 1964 DTAP/TDAP/TD VACCINE (1 - Tdap) 1980 Shingles Vaccine (Shingrix) (1 of 2) 2011 INFLUENZA VACCINE (#1) 2025 05/16/2017 CT Colonography Completed HEP A VACCINE Aged Out No longer elig ible based on patient's age to complete this topic HIB VACCINE Aged Out No longer eligi ble based on patient's age to complete this topic ROTOVIRUS VACCINE Aged Out No longer eligible based on patient's age to complete this topic Medical Devices Implanted Type Area Thoracic Medicine Specialist Device Identifier Shelf Expiration Date Model / Serial / Lot Pacemaker Insurance MEDICAL ASSISTANCE Member Subscriber Plan / Payer (Ef fective 2024-Present) Name:Marvin Staton Relation to Subscriber:Self Name:Marvin Staton Payer ID:Not on file Group ID:Not on file Type:Not on file Address: [address] MEDICAL ASSISTANCE Advance Directives * Full Code (Latest Code Status on File) Date Activated Date Inactivated Comments 08/19/2022 11:54 AM 08/19/2022 6:32 PM Care Teams Sawsmith Relationship Specialty Start Date End Date John Schaefer DO [address] [place] [phone] PCP - General Family Medicine 01/24/10 Melissa Barron MD [address] [place] [address] Pulmonary Disease 06/16/22 Eli Echevarria MA 08/11/22
--- OUTSIDE RECORDS SUMMARY | 2025-07-26 12:52 | XMS_ITS | Encounter Summary ---
Author Organization [facility] Address [address] [place] [address] Care Team Providers Care Certified Novell Engineer Name Role Phone JudeJohn rodriguez Primary Care Provider [phone] Melissa Barron MD Unavailable Eli Echevarria MA Unavailable Unavailable Reason for Visit * Reason Onset Date Comments Medications Refill 09/13/2018 Encounter Details Date Type Department Care Team (Late st Contact Info) Description 09/13/2018 Telephone [facility] [address], [address] [place] [phone] Yue Kendrick MD [address] [facility] [place] [address] [address] Medications Refill Social History Tobacco Use Types [...] * Telephone Encounter - Cindi Whitley - 09/13/2018 2:11 PM EST Pt's called to request a PA for morphine, per [facility] [place]. [phone] documented in this encounter Plan of Treatment Upcoming Encounters Date Type Department Care Team (Late st Contact Info) Description 09/06/2025 2:00 PM EST Treatment [facility] [address] [address], 2nd Floor, [address] [place] [address] Yue Kendrick MD [address] [facility] [address] [place] [address] documented as of this encounter Visit Diagnoses Not on filedocumented in this encounter Care Teams Certified Novell Engineer Relationship Specialty Start Date End Date John Schaefer DO [address] [place] [phone] PCP - General Family Medicine 01/24/10 Melissa Barron MD [address] [place] [address] Pulmonary Disease 06/16/22 Eli Echevarria MA 08/11/22 documented as of this encounter
--- OUTSIDE RECORDS SUMMARY | 2025-07-26 12:52 | XMS_ITS | Clinical Summary ---
Author Organization [facility] Address [address] [place] [address] Care Team Providers Care Golf Club Repairer Name Role Phone Arash Kim Primary Care Provider [phone] Allergies No known active allergies Medications influenza quadrivalent vaccine (FLUBLOK) 0.5 ML solution prefilled syringe Inject 0.5 mL into the shoulder, thigh, or buttocks Before Discharge (Flu vaccine) for up to 1 dose. 0.5 mL 1 Active ipratropium-albut tiara (DUO-NEB) 0.5-2.5 mg/3 mL nebulizer Inhale 3 mL Every 6 hours as needed. for shortness of breath. 0 1 Active nystatin (MYCOSTATIN) 669284 UNIT/ML suspension Apply 5 mL (500,000 Units total) to the mouth or throat 2 (two) times a day. 60 mL 1 Active potassium bicarb-citric acid (EFFER-K) 20 MEQ effervescent tablet effervescent tablet Administer 1 tablet (20 mEq total) per tube 2 (two) times a day. 0 1 Active Active Problems Problem Noted Date Diagnosed Date Duodenal ulcer with hemorrhage 06/05/2021 Generalized edema 05/30/2021 Overview (05/30/2021): hypoalbuminemia Acute respiratory failure with hypoxia 1 Family History Medical History Relation Name Comments No Known Problems Brother No Known Problems Father No Known Problems Mother No Known Problems Sister Relation Name Status Comments Brother Father Mother Sister Social History Tobacco Use Types Packs/Day Years Used Date Smoking Tobacco: Former Cigarettes 2 38 1 970 - 2007 Tobacco Cessation:Counseling Given: No Alcohol Use Standard Drinks/Week Comments Not Currently 0 (1 standard drink = 0.6 oz pur e alcohol) Sex and Gender Information Value Date Recorded Sex Assigned at Not on file Legal Sex Male 11:56 AM EDT Gender Identity Not on file Sexual Orientation Not on file Last Filed Vital Signs Vital Sign Reading Time Taken Comments Blood Pressure 136/78 07/07/2021 11:32 AM EST Pulse 60 07/07/2021 11:45 AM EST Temperature 36.4 C (97.6 F) 07/07/2021 11:32 AM EST Respiratory Rate 16 07/07/2021 11:4 5 AM EST Oxygen Saturation 98% 07/07/2021 11: 45 AM EST Inhaled Oxygen Concentration - - Weight 101.4 kg (223 lb 9.6 oz) 07/06/2021 9:24 PM EST Height 190.5 cm (6' 3 ) 05/27/2021 12:0 1 PM EDT Body Mass Index 27.95 05/27/2021 12:01 PM EDT Plan of Treatment Health Maintenance Due Date Last Done Comments CT Colonography 1961 Colonoscopy 1961 Colorectal Cancer Screening 1961 FIT-DNA (Cologuard) 1961 FIT 1961 FOBT 1961 Sigmoidoscopy 1961 Annual Visit Topic 1962 MMR Vaccines (1 of 1 - Stand margie series) 1962 Hepatitis C Screening 1979 DTaP/Tdap/Td Vaccines (1 - Tdap) 1980 PSA Test 2016 HIB Vaccines Aged Out No longer eligi ble based on patient's age to complete this topic HPV Vaccines Aged Out No longer eligi ble based on patient's age to complete this topic Hepatitis A Vaccines Aged Out No long er eligible based on patient's age to complete this topic Hepatitis B Vaccines Aged Out No long er eligible based on patient's age to complete this topic IPV Vaccines Aged Out No longer eligi ble based on patient's age to complete this topic Meningococcal Vaccine Aged Out No alli xena eligible based on patient's age to complete this topic Pneumococcal Vaccine: Pediat rics (0 to 5 years) and At-Risk Patients (6 to 64 Years) Aged Out No longer eligible b ased on patient's age to complete this topic Advance Directives * Full Resuscitation (Latest Code Status on File) Date Activated Date Inactivated Comments 05/22/2021 6:56 PM 07/07/2021 5:30 PM Care Teams Golf Club Repairer Relationship Specialty Start Date End Date Arash Kim [address] [place] [phone] PCP - General 05/23/21
--- OUTSIDE RECORDS SUMMARY | 2025-07-26 12:52 | XMS_ITS ---
Author Organization [facility] Care Team Providers Care Director Of Business Continuity Name Role Phone Marcellus Meyers Unavailable Unavailable Brianna Parmar Unavailable Unavailable Christy Loomis Unavailable Unavailable Allergies and adverse reactions No Known Allergies Care Team Name Role Address Phone Organization Dates Marcellus Meyers PCP [address], [place], [address], [place] (Office[place] : : [facility] 07/07/2021 - 10/31/2021 Brianna Parmar [address], [place], [address], [place] (Office): : : (Pager): [facility] 07/07/2021 - 10/31/2021 Christy Loomis [address] [place], [address], [place] (Office): : [facility] 07/07/2021 - 10/31/2021 Immunizations Immunization Status Vaccine Details Vaccine Code CodeSystem Date Notes Influenza new Influenza, high-dose, split virus, quadrivalent, injectable, preservative free 197 CVX created date: 07/09/2021 consent date: 07/09/2021 Educated by on 07/09/2021 Pneumovax Dose 1 new pneumococcal polysaccharide vaccine, 23 valent 33 CVX created date: 07/09/2021 consent date: 07/09/2021 Educated by on 07/09/2021 Prevnar-13 completed pneumococcal conjugate vaccine, 13 valent 133 CVX created date: 07/09/2021 consent date: 07/09/2021 administer ed date: 07/11/2021 Educated by on 07/09/2021 SARS-COV-2 (COVID-19) cancelled SARS-COV-2 (COVID-19) vaccine, mRNA, spike protein, LNP, preservative free, 10 mcg/0.2mL dose, ana-sucrose formulation 218 CVX created date: 07/09/2021 consent date: 07/09/2021 SARS-COV-2 (COVID-19) cancelled SARS-COV-2 (COVID-19) vaccine, mRNA, spike protein, LNP, preservative free, 10 mcg/0.2mL dose, ana-sucrose formulation 218 CVX created date: 07/09/2021 consent date: 07/09/2021 Mental Status Section Date Assessment Total Score Description 10/31/2021 BIMS 15 cognitively int act CAM 0 No delirium ind icated PHQ-9 01 minimal depress ion 10/14/2021 BIMS 15 cognitively int act CAM 0 No delirium ind icated PHQ-9 00 Insurance Providers Coverage Status Coverage Type Relationship to Subscriber Member Identifier Subscriber Identifier Group Identifier Payer Identifier and Other information Code: Code System OID:[id number] Code System Name: Source of Payment Typology (PHDSC) Display: Managed Care (Private) Translation: Code: Code System: OID:[id number] .[id number] Code System Name: Insurance Type Code ([id number]) Display Name: Health Maintenance Organization (HMO) Plan Problems Problem # Description Date of onset Resolved Date Code CodeSystem Concern Status 1 DYSPHAGIA, OROPHARYNGEAL PHASE 07/14/[address] active 2 MUSCLE WEAKNESS (GENERALIZED) 07/08/[address] active 3 ACUTE AND CHRONIC RESPIRATORY FAILURE, UNSPECIFIED WHETHER WITH HYPOXIA OR HYPERCAPNIA 07/07/[address] active 4 ANEMIA, UNSPECIFIED 07/07/[address] active 5 ATHEROSCLEROTIC HEART DISEASE OF [place] CORONARY ARTERY WITHOUT ANGINA PECTORIS 07/07/[address] active 6 CANDIDAL STOMATITIS 07/07/[address] active 7 CARDIOMEGALY 07/07/[address] active 8 CHRONIC ATRIAL FIBRILLATION 07/07/[address] active 9 CONSTIPATION, UNSPECIFIED 07/07/[address] active 10 DEPENDENCE ON RESPIRATOR [VENTILATOR] STATUS 07/07/2007/07/[address] completed 11 DYSPHAGIA, UNSPECIFIED 07/07/[address] active 12 ESSENTIAL (PRIMARY) HYPERTENSION 07/07/[address] active 13 GASTROSTOMY STATUS 07/07/[address] active 14 GENERALIZED EDEMA 07/07/[address] active 15 HYPERLIPIDEMIA, UNSPECIFIED 07/07/[address] active 16 HYPOKALEMIA 07/07/[address] active 17 MAJOR DEPRESSIVE DISORDER, RECURRENT, UNSPECIFIED 07/07/[address] active 18 OBSTRUCTIVE SLEEP APNEA (ADULT) (PEDIATRIC) 07/07/[address] active 19 OCCLUSION AND STENOSIS OF RIGHT CAROTID ARTERY 07/07/[address] active 20 OTHER DISORDERS OF PLASMA-PROTEIN METABOLISM, NOT ELSEWHERE CLASSIFIED 07/07/[address] active 21 PERSONAL HISTORY OF OTHER DISEASES OF THE DIGESTIVE SYSTEM 07/07/[address] active 22 PERSONAL HISTORY OF PEPTIC ULCER DISEASE 07/07/[address] active 23 PNEUMONIA DUE TO PSEUDOMONAS 07/07/20 21 10/17/[address] completed 24 PRESENCE OF CARDIAC PACEMAKER 07/07/[address] active 25 SICK SINUS SYNDROME 07/07/[address] active 26 TRACHEOSTOMY STATUS 07/07/[address] active 27 TYPE 2 DIABETES MELLITUS WITH HYPERGLYCEMIA 07/07/[address] active Reason for Referral No Reasons for Referral Entered Social History Social History Observation Description Start Date End Date Code Code System Current Smoking Status Tobacco smoking consumption unknown 207855161 SNOMED CT Sex Assigned At Male 1960 18209-7 [facility] Gender Identity Sexual Orientation Vital Signs Code Code System Vitals Name Values and Units Timing Information 57366-2 [facility] O2 % BldC Oximetry Value=99.0 Units= % 10/31/2021 8462-4 [facility] Blood Pressure-Diastolic Value=72 Un its=mmHg 10/31/2021 8480-6 [facility] Blood Pressure-Systolic Hrqel=781 Un its=mmHg 10/31/2021 8867-4 [facility] Heart rate Value=74.0 Units=/min 8310-5 [facility] Body Temperature Value=97.6 Units= F 10/31/2021 9279-1 [facility] Respiratory Rate Value=20.0 Units=/m in 10/31/2021 76454-6 [facility] Pain Level Value=0.0 10/31/2021 70149-8 [facility]INC Weight Pmdsm=560.5 Units=Lbs 2339-0 [facility] Blood Sugar Kyujk=756.0 Units=mg/dL 08/04/2021 8302-2 [facility] Height Value=75.0 Units=Inches 07/08/2021
--- OUTSIDE RECORDS SUMMARY | 2025-07-26 12:52 | XMS_ITS | Encounter Summary ---
Author Organization [facility] Address [address] [place] [address] Care Team Providers Care Suction Drum Drier Operator Name Role Phone JudeJohn rodriguez Primary Care Provider [phone] Melissa Barron MD Unavailable Eli Echevarria MA Unavailable Unavailable Reason for Visit * Reason Onset Date Comments Medication - Prior Authorization 12/22/2016 Encounter Details Date Type Department Care Team (Late st Contact Info) Description 12/22/2016 Telephone [facility] [address], [address] [place] [address] Yue Kendrick MD [address] [facility] [address] [place] [address] [place] [address] Medication - Prior Authorization Social History Tobacco [...] * Telephone Encounter - Malissa Combs - 12/22/2016 2:19 PM EDT Morphine needs a PA documented in this encounter Plan of Treatment Upcoming Encounters Date Type Department Care Team (Late st Contact Info) Description 09/06/2025 2:00 PM EST Treatment [facility] [address] [place] [address] A, [address]nd Floor, [address] [place] [address] Yue Kendrick MD [address] [facility] [address] [place] [address] [place] [address] documented as of this encounter Visit Diagnoses Not on filedocumented in this encounter Care Teams Suction Drum Drier Operator Relationship Specialty Start Date End Date John Schaefer DO [address] [place] [phone] PCP - General Family Medicine 01/24/10 Melissa Barron MD [address] [place], [place] [address] [place] [address] Pulmonary Disease 06/16/22 Eli Echevarria MA 08/11/22 documented as of this encounter
--- OUTSIDE RECORDS SUMMARY | 2025-07-26 12:52 | XMS_ITS | Clinical Summary ---
Author Organization [facility] Address [address] [place] [address] Care Team Providers Care Onsite Health Coach Name Role Phone Unavailable Primary Care Provider Unavailabl e Immunizations Immunization Administration Dates Next Due Influenza, injectable, quadrivalent, preservativ e free 05/16/2017 Family History Medical History Relation Name Comments Conversions - Other Brother CAD (cor onary artery disease), [place] coronary artery Other cancer Father Conversions - Other Mother CAD (cor onary artery disease), [place] coronary artery Other cancer Sister Relation Name Status Comments Brother Father Mother Sister Social History Tobacco Use Types Packs/Day Years Used Date Smoking Tobacco: Former Alcohol Use Standard Drinks/Week Comments No 0 (1 standard drink = 0.6 oz pur e alcohol) Sex and Gender Information Value Date Recorded Sex Assigned at Not on file Legal Sex Male 6:35 PM EDT Gender Identity Not on file Sexual Orientation Not on file Last Filed Vital Signs Vital Sign Reading Time Taken Comments Blood Pressure - - Pulse - - Temperature - - Respiratory Rate - - Oxygen Saturation - - Inhaled Oxygen Concentration - - Weight 106 kg (233 lb 5.7 oz) 06/03/2017 12:45 P M EDT Height 190.5 cm (6' 3 ) 06/03/2017 12:45 PM EDT Body Mass Index 29.17 06/03/2017 12:45 PM EDT Plan of Treatment Health Maintenance Due Date Last Done Comments [facility]-Depression Screening 1961 [facility]-Infant/Child/Adol SDOH Screenings 1961 [facility]- SDOH Screenings 1979 [facility]-Adult SDOH Screenings 1979 [facility]-DTaP,Tdap,and Td Vaccine s (1 - Tdap) 1980 CT Colonography 2006 Colonoscopy 2006 FIT-DNA 2006 FIT 2006 FOBT 2006 Sigmoidoscopy 2006 [facility]-Colorectal Cancer Screening 2006 [facility]-Pneumococcal Vaccine: 50 + Years (1 of 1 - PCV) 2011 [facility]-Zoster Vaccines (1 of 2) 2011 [id number] Vaccine ( - 20 25-26 season) 2025 [facility]-Influenza Vaccine (#1) 2025 05/16/2017 [facility]-RSV Vaccine: 60+ Years o r (1 - 1-dose 75+ series) 2036 HPV Vaccines (No Doses Required) Completed [facility]-HIB Vaccines Aged Out No longer e ligible based on patient's age to complete this topic [facility]-Hepatitis A Vaccines Aged Out No longer eligible based on patient's age to complete this topic [facility]-IPV Vaccines Aged Out No longer e ligible based on patient's age to complete this topic [facility]-Rotavirus Vaccines Aged Out No lo nger eligible based on patient's age to complete this topic
--- OUTSIDE RECORDS SUMMARY | 2025-07-26 12:52 | XMS_ITS | Encounter Summary ---
Author Organization [facility] Address [address] [id number] Care Team Providers Care Manager Nicu Name Role Phone John Schaefer Primary Care Provider [phone] Melissa Barron MD Unavailable Eli Echevarria MA Unavailable Unavailable Reason for Visit * Reason Onset Date Comments Medication - Prior Authorization 05/11/2016 Encounter Details Date Type Department Care Team ([facility] Contact Info) Description 05/11/2016 Telephone [facility] [address], [address] [place] [id number] Minerva Faust, out patient therapist - Prior Authorization Social History Tobacco Use [...] * Telephone Encounter - Minerva Faust - 05/11/2016 8:42 AM EDT Actual call to pt was May 07. Called to let him know PA process was initiated. He voiced understanding. dcr documented in this encounter Plan of Treatment Upcoming Encounters Date Type Department Care Team (Late Contact Info) Description 09/06/2025 2:00 PM EST Treatment [facility] [address] A, 2nd Floor, [address] [place] [address] Yue Kendrick MD [address] [facility] [address]ND FLOOR [place], [place] [id number] documented as of this encounter Visit Diagnoses Not on filedocumented in this encounter Care Teams Manager Nicu Relationship Specialty Start Date End Date John Schaefer DO [address] [place] [phone] PCP - General Family Medicine 01/24/10 Melissa Barron MD [address] [place] [address] [address] [place] [address] Pulmonary Disease 06/16/22 Eli Echevarria MA 08/11/22 documented as of this encounter
--- OUTSIDE RECORDS SUMMARY | 2025-07-26 12:53 | XMS_ITS | Encounter Summary ---
Author Organization [facility] Address [address] [id number] Care Team Providers Care Cooky Machine Operator Name Role Phone JudeJohn rodriguez Primary Care Provider [phone] Melissa Barron MD Unavailable Eli Echevarria MA Unavailable Unavailable Encounter Details Date Type Department Care Team (Late Contact Info) Description 09/18/2011 Telephone [facility] [address], [address] [place] [address] Amanda Wang LPN Social History [...] * Telephone Encounter - Amanda Wang - 09/18/2011 12:16 PM EST Pt aware scripts are ready for scrap picker until 3pm mon-thurs documented in this encounter Plan of Treatment Upcoming Encounters Date Type Department Care Team (Late Contact Info) Description 09/06/2025 2:00 PM EST [facility] [address] [facility], 2nd Floor, [address] [place] [address] Yue Kendrick MD [address] [facility] [address] A 2ND [place] [address] documented as of this encounter Visit Diagnoses Not on filedocumented in this encounter Care Teams Cooky Machine Operator Relationship Specialty Start Date End Date John Schaefer DO [address] [place] [phone] PCP - General Family Medicine 01/24/10 Melissa Barron MD [address] [place] [address] Pulmonary Disease 06/16/22 Eli Echevarria MA 08/11/22 documented as of this encounter
--- OUTSIDE RECORDS SUMMARY | 2025-07-26 12:53 | XMS_ITS | Encounter Summary ---
Author Organization [facility] Address [address] [place] [address] Care Team Providers Care Self Contained Behavior Unit Teacher Name Role Phone John Schaefer Primary Care Provider [phone] Melissa Barron MD Unavailable Eli Echevarria MA Unavailable Unavailable Encounter Details Date Type Department Care Team (Late Contact Info) Description 09/14/2012 Telephone [facility] [address], [address] [place] [address] Amanda Wang LPN Social History [...] [facility] [address] [facility], 2nd Floor, [address] [place] [address] Yue Kendrick MD [address] [place] [address] [place] [address] documented as of this encounter Visit Diagnoses Not on filedocumented in this encounter Care Teams Self Contained Behavior Unit Teacher Relationship Specialty Start Date End Date John Schaefer DO [address] [place] [phone] PCP - General Family Medicine 01/24/10 Melissa Barron MD [address] [place] [address] Pulmonary Disease 06/16/22 Eli Echevarria MA 08/11/22 documented as of this encounter
--- OUTSIDE RECORDS SUMMARY | 2025-07-26 12:53 | XMS_ITS | Encounter Summary ---
Author Organization [facility] Address [address] [id number] Care Team Providers Care Teacher Instrumental Name Role Phone John Schaefer Primary Care Provider [phone] Melissa Barron MD Unavailable Eli Echevarria MA Unavailable Unavailable Reason for Visit * Reason Onset Date Comments Other 08/18/2024 Encounter Details Date Type Department Care Team (Late st Contact Info) Description 08/18/2024 Telephone [facility] [address] [place] [address] Faiza Wesley, RN Other Social History Tobacco Use Types Packs/Day Years [...] encounter Miscellaneous Notes * Telephone Encounter - Faiza Wesley, CELESTINE - 08/18/2024 12:02 PM EST Patient called in stating that he has refills on MS cotin 15 mg but the pharmacy does not have it in stock they said they can't seem to get it but [facility] pharmacy has it in stock but they need the Doctor to send the prescription to send it to the pharmacy documented in this encounter Plan of Treatment Upcoming Encounters Date Type Department Care Team (Late st Contact Info) Description 09/06/2025 2:00 PM EST Treatment [facility] [address] [place] [address] A, 2nd Floor, [address] [place] [address] Yue Kendrick MD [address] [facility] [address] [place] 2[place] [address] documented as of this encounter Visit Diagnoses Not on filedocumented in this encounter Care Teams Teacher Instrumental Relationship Specialty Start Date End Date John Schaefer DO [address] [place] [phone] PCP - General Family Medicine 01/24/10 Melissa Barron MD [address] [place] [address] Pulmonary Disease 06/16/22 Eli Echevarria MA 08/11/22 documented as of this encounter
--- OUTSIDE RECORDS SUMMARY | 2025-07-26 12:53 | XMS_ITS | Clinical Summary ---
Author Organization [facility] Address [address] [place] [address] Phone Care Team Providers Care Pipe Cleaning Machine Operator Name Role Phone Unavailable Primary Care Provider Unavailabl e Allergies No known active allergies Active Problems Problem Noted Date Diagnosed Date Melena NICOLAS (acute kidney injury) Surgical History Surgery Date Site/Laterality Comments IR US GUIDED THORACENTESIS 06/13/2021 IR US GUIDED THORACENTESIS 06/13/2021 Jazmin Lozada PA-C FTT IR Social History Tobacco Use Types Packs/Day Years Used Date Smoking Tobacco: Never Assessed Sex and Gender Information Value Date Recorded Sex Assigned at Not on file Legal Sex Male 6:45 PM EDT Gender Identity Not on file Sexual Orientation Not on file Last Filed Vital Signs Vital Sign Reading Time Taken Comments Blood Pressure - - Pulse - - Temperature - - Respiratory Rate - - Oxygen Saturation 99% 06/13/2021 10:25 AM EDT Inhaled Oxygen Concentration - - Weight - - Height - - Body Mass Index - - Plan of Treatment Health Maintenance Due Date Last Done Comments Annual Wellness Exam 1964 Hepatitis C Screening 1979 DTaP/TDaP/Td (1 - Tdap) 1980 Cologuard 2006 Colon Cancer Screening 2006 Colonoscopy 2006 FIT 2006 Sigmoidoscopy 2006 Virtual Colonography 2006 Pneumococcal Vaccine 50+ (1 of 1 - PCV) 2011 Zoster (1 of 2) 2011 COVID-19 Vaccine (2024-2 6 season) 2025 Influenza Vaccine (#1) 2025 05/16/2017 Hepatitis B Vaccine Aged Out No longe r eligible based on patient's age to complete this topic Meningococcal B Vaccine Aged Out No l onger eligible based on patient's age to complete this topic Insurance [place] [address] [employer] PART [place] AND B Member Subscriber Plan / Payer (Ef fective 2007-Present) Name:Marvin Davis Member ID:[id number] Relation to Subscriber:Self Name:Marvin Davis Subscriber ID:[id number] Payer ID:Not on file Group ID:Not on file Type:Not on file Address: [address] [id number] [employer] PART A AND B [address]
--- OUTSIDE RECORDS SUMMARY | 2025-07-26 12:53 | XMS_ITS | Encounter Summary ---
Author Organization [facility] Address [address] [id number] Care Team Providers Care Combat Systems Operator Name Role Phone John Schaefer Primary Care Provider [phone] Melissa Barron MD Unavailable Eli Echevarria MA Unavailable Unavailable Reason for Visit * Reason Onset Date Comments Other 08/17/2022 Encounter Details Date Type Department Care Team (Late st Contact Info) Description 08/17/2022 Telephone [facility] [address] [address] Eli Echevarria MA Other Social History Tobacco Use Types Packs/Day [...] documented as of this encounter Functional Status * Question Answer Date of Assessment Author Pain Level 0 08/19/2022 2:10 PM EST Elisha Jones RN * Question Answer Date of Assessment Author Eye Opening 4 08/19/2022 12:39 PM Melissa Clemens, CELESTINE Best Motor Response 6 08/19/2022 12:39 PM Melissa Nuñez, CELESTINE Best Verbal Response 5 08/19/2022 12:39 PM Melissa Montiel, CELESTINE * [place] Fall Risk Score Question Answer Date of Assessment Author History of Falling, Immediat e or Within 6 Months 0 08/19/2022 12:39 PM EST Melissa Moody RN Secondary Diagnosis 0 08/19/2022 12:[address] Melissa Moody RN Ambulatory Aid 0 08/19/2022 12:39 PM EST Melissa Azul RN IV or IV Access 20 08/19/2022 12:39 PM EST Melissa Patrick RN Gait/Transferring 0 08/19/2022 12:39 PM EST Melissa Moody RN Mental Status 0 08/19/2022 12:39 PM EST Daniel insMelissa RN [place] Fall Risk Score 20 08/19/2022 12:39 PM EST Melissa Moody RN documented as of this encounter Mental Status * Question Answer Entry Date Author Pain Level 0 08/19/2022 2:10 PM EST Elisha Jones RN documented in this encounter Plan of Treatment Upcoming Encounters Date Type Department Care Team (Late st Contact Info) Description 09/06/2025 2:00 PM EST Treatment [facility] 617 [address] A, 2nd Floor, [address] [place] [address] Yue Kendrick MD 1 [facility] A 2ND [place] [address] documented as of this encounter Visit Diagnoses Not on filedocumented in this encounter Care Teams Combat Systems Operator Relationship Specialty Start Date End Date John Schaefer DO [address] [place] [phone] PCP - General Family Medicine 01/24/10 Melissa Barron MD [address] [place] [address] Pulmonary Disease 06/16/22 Eli Echevarria MA 08/11/22 documented as of this encounter
--- OUTSIDE RECORDS SUMMARY | 2025-07-26 12:53 | XMS_ITS | Encounter Summary ---
Author Organization [facility] Address [address] [place] [address] Care Team Providers Care Forestry Technician Name Role Phone JudeJohn rodriguez Primary Care Provider [phone] Melissa Barron MD Unavailable Eli Echevarria MA Unavailable Unavailable Encounter Details Date Type Department Care Team (Late st Contact Info) Description 08/21/2010 Refill [facility] [address] [place] [address] Arash Kim MD [address] [place] [address] Social History Tobacco Use Types Packs/Day Years Used Date Smoking Tobacco: Former Cigarettes Comments:quit 2 years ago Alcohol Use Standard Drinks/Week Comments No 0 (1 standard drink = 0.6 oz pur e alcohol) Sex and Gender Information Value Date Recorded Sex Assigned at Not on file Legal Sex Male 10:01 PM EST Gender Identity Not on file Sexual Orientation Not on file documented as of this encounter Miscellaneous Notes * Telephone Encounter - Kalie eNwman - 08/21/2010 2:[address] Kim changed his coreg to 12.5 1 twice a day, but it was never sent to [facility], I don't think they e-script. documented in this encounter Plan of Treatment Upcoming Encounters Date Type Department Care Team (Late st Contact Info) Description 09/06/2025 2:00 PM EST Treatment [facility] [address] [place] [address] A, 2nd Floor, [address] [place] [address] Yue Kendrick MD [address] [facility] [address] [place] [address] [address] documented as of this encounter Visit Diagnoses Diagnosis CAD (coronary artery disease) Coronary atherosclerosis of unspecified type of vessel, [place] or graft Bradycardia Other specified cardiac dysrhythmias Coronary atherosclerosis of [place] coronary artery HTN (hypertension), benign Essential hypertension, benign Carotid artery stenosis Occlusion and stenosis of carotid artery without mention of cerebral infarction HLD (hyperlipidemia) Other and unspecified hyperlipidemia Lumbago Angina Other and unspecified angina pectoris PAD (peripheral artery disease) Peripheral vascular disease, unspecified PVD (peripheral vascular disease) with claudication Peripheral vascular disease, unspecified documented in this encounter Care Teams Forestry Technician Relationship Specialty Start Date End Date John Schaefer DO [address] [place] [phone] PCP - General Family Medicine 01/24/10 Melissa Barron MD [address] [place] [address] Pulmonary Disease 06/16/22 Eli Echevarria MA 08/11/22 documented as of this encounter
--- OUTSIDE RECORDS SUMMARY | 2025-07-26 12:53 | XMS_ITS | Encounter Summary ---
Author Organization [facility] Address [address] [id number] Care Team Providers Care Convenience Store Clerk Name Role Phone John Schaefer Primary Care Provider [phone] Melissa Barron MD Unavailable Eli Echevarria MA Unavailable Unavailable Reason for Visit * Reason Onset Date Comments Medications Refill 03/15/2012 Encounter Details Date Type Department Care Team (Late Contact Info) Description 03/15/2012 Refill [facility] [address], [address] [place] [address] Aury Strong RN Social History Tobacco Use Types Packs/Day [...] encounter Miscellaneous Notes * Telephone Encounter - Aury Strong RN - 03/15/2012 2:53 PM EDT Msg left item requested is ready for fern picker documented in this encounter Plan of Treatment Upcoming Encounters Date Type Department Care Team (Late Contact Info) Description 09/06/2025 2:00 PM EST Treatment [facility] [address] [facility] [place] A, 2nd Floor, [address] [place] [address] Yue Kendrick MD [address] [facility] A 2ND FLOOR [place], [place] [id number] documented as of this encounter Visit Diagnoses Not on filedocumented in this encounter Care Teams Convenience Store Clerk Relationship Specialty Start Date End Date John Schaefer DO [address] [place] [phone] PCP - General Family Medicine 01/24/10 Melissa Barron MD [address] [place], [place] [address] [place] [address] Pulmonary Disease 06/16/22 Eli Echevarria MA 08/11/22 documented as of this encounter
--- OUTSIDE RECORDS SUMMARY | 2025-07-26 12:53 | XMS_ITS | Encounter Summary ---
Author Organization [facility] Address [address] [phone] Care Team Providers Care Shoe Ironer Name Role Phone John Schaefer Primary Care Provider [phone] Melissa Barron MD Unavailable Eli Echevarria MA Unavailable Unavailable Reason for Visit * Reason Onset Date Comments Medications Refill 12/10/2010 Encounter Details Date Type Department Care Team (Late Contact Info) Description 12/10/2010 Refill [facility] [address], [address] [place] [address] Amanda Wang LPN HNP (herniated [...] * Telephone Encounter - Amanda Wang - 12/10/2010 3:20 PM EDT Last appt- 10-20-10 Next appt- 01-20-11 Last urine tox- 10-20-10, results not available at this time, AIT system down documented in this encounter Plan of Treatment Upcoming Encounters Date Type Department Care Team (Late st Contact Info) Description 09/06/2025 2:00 PM EST Treatment [facility] [address] [place] [address] A, 2nd Floor, [address] [place] [address] Yue Kendrick MD [address] [facility] [address] [place] [address] documented as of this encounter Visit Diagnoses Diagnosis HNP (herniated nucleus pulposus) Displacement of intervertebral disc, site unspecified, without myelopathy Lumbar spondylosis Lumbosacral spondylosis without myelopathy documented in this encounter Care Teams Shoe Ironer Relationship Specialty Start Date End Date John Schaefer DO [address] [place] [phone] PCP - General Family Medicine 01/24/10 Melissa Barron MD [address] [place] [address] Pulmonary Disease 06/16/22 Eli Echevarria MA 08/11/22 documented as of this encounter
--- OUTSIDE RECORDS SUMMARY | 2025-07-26 12:53 | XMS_ITS | Encounter Summary ---
Author Organization [facility] Address [address] [place] [address] Care Team Providers Care Chicken Tender Name Role Phone John Schaefer Primary Care Provider [phone] Melissa Barron MD Unavailable Eli Echevarria MA Unavailable Unavailable Encounter Details Date Type Department Care Team (Late Contact Info) Description 06/14/2012 Telephone [facility] [address] [place] [address] Amanda Wang LPN Social History [...] [facility] [address] [facility], 2nd Floor, [address] [place] [address] Yue Kendrick MD [address] [place] [address] [place] [address] documented as of this encounter Visit Diagnoses Not on filedocumented in this encounter Care Teams Chicken Tender Relationship Specialty Start Date End Date John Schaefer DO [address] [place] [phone] PCP - General Family Medicine 01/24/10 Melissa Barron MD [address] [place] [address] Pulmonary Disease 06/16/22 Eli Echevarria MA 08/11/22 documented as of this encounter
--- OUTSIDE RECORDS SUMMARY | 2025-07-26 12:53 | XMS_ITS | Encounter Summary ---
Author Organization [facility] Address [address] [place] [address] Care Team Providers Care Forklift Picker Name Role Phone John Schaefer Primary Care Provider [phone] Melissa Barron MD Unavailable Eli Echevarria MA Unavailable Unavailable Reason for Visit * Reason Onset Date Comments Other 08/05/2022 Needing new orde r Encounter Details Date Type Department Care Team (Late st Contact Info) Description 08/05/2022 Telephone Centralized Scheduling 1 [facility] [phone] Melissa Barron MD [address] [place] [address] Other (Needing new order ) Social History Tobacco Use Types Packs/Day Years [...] encounter Miscellaneous Notes * Telephone Encounter - Sabrina Adamescia Simba - 08/05/2022 12:56 PM EST We received an order for LDCT for patient. Needing new order as we are scheduling past expiration date of 08/30/22. Any questions, please call [phone] Thanks documented in this encounter Plan of Treatment Upcoming Encounters Date Type Department Care Team (Late st Contact Info) Description 09/06/2025 2:00 PM EST Treatment [facility] [address] [facility] A, 2nd Floor, [address] [place] [address] Yue Kendrick MD [address] [place] [address] documented as of this encounter Visit Diagnoses Not on filedocumented in this encounter Care Teams Forklift Picker Relationship Specialty Start Date End Date John Schaefer DO [address] [place] [phone] PCP - General Family Medicine 01/24/10 Melissa Barron MD [address] [place] [address] Pulmonary Disease 06/16/22 Eli Echevarria MA 08/11/22 documented as of this encounter
--- OUTSIDE RECORDS SUMMARY | 2025-07-26 12:53 | XMS_ITS | Encounter Summary ---
Author Organization [facility] Address [address] [place] [address] Care Team Providers Care Director Of Employer Services Name Role Phone John Schaefer Primary Care Provider [phone] Melissa Barron MD Unavailable Eli Echevarria MA Unavailable Unavailable Encounter Details Date Type Department Care Team (Late st Contact Info) Description 05/20/2020 Telephone [facility] [address] [facility], 2nd Floor, [address] [place] [address] Yue Kendrick MD [address] [place] [address] [place] [address] Social History Tobacco Use Types Packs/Day Years [...] Treatment [facility] [address] [facility], 2nd Floor, [address] [place] [address] Yue Kendrick MD [address] [place] [address] [place] [address] documented as of this encounter Visit Diagnoses Not on filedocumented in this encounter Care Teams Director Of Employer Services Relationship Specialty Start Date End Date Shelton SchaefermyDO [address] [place] [phone] PCP - General Family Medicine 01/24/10 Melissa Barron MD [address] [place] [address] Pulmonary Disease 06/16/22 Eli Echevarria MA 08/11/22 documented as of this encounter
--- OUTSIDE RECORDS SUMMARY | 2025-07-26 12:53 | XMS_ITS | Encounter Summary ---
Author Organization [facility] Address [address] [place] [address] Care Team Providers Care Gripper Installer Name Role Phone John Schaefer Primary Care Provider [phone] Melissa Barron MD Unavailable Eli Echevarria MA Unavailable Unavailable Encounter Details Date Type Department Care Team (Late Contact Info) Description 11/11/2010 Refill [facility] [address] [place] [address] Arash Kim MD [address] [place] [address] Social History Tobacco Use Types Packs/Day Years [...] [facility]IN [facility] [address] [facility] [place] A, 2nd Floor, [address] [place] [address] Yue Kendrick MD [address] [facility] [address] [place] [address] documented as of this encounter Visit Diagnoses Diagnosis CAD (coronary artery disease) Coronary atherosclerosis of unspecified type of vessel, [place] or graft Bradycardia Other specified cardiac dysrhythmias Coronary atherosclerosis of [place] coronary artery HTN (hypertension), benign Essential hypertension, benign Carotid artery stenosis Occlusion and stenosis of carotid artery without mention of cerebral infarction HLD (hyperlipidemia) Other and unspecified hyperlipidemia Lumbago Angina Other and unspecified angina pectoris PAD (peripheral artery disease) Peripheral vascular disease, unspecified PVD (peripheral vascular disease) with claudication Peripheral vascular disease, unspecified documented in this encounter Care Teams Gripper Installer Relationship Specialty Start Date End Date John Schaefer DO [address] [place] [phone] PCP - General Family Medicine 01/24/10 Melissa Barron MD [address] [place] [address] Pulmonary Disease 06/16/22 Eli Echevarria MA 08/11/22 documented as of this encounter
--- OUTSIDE RECORDS SUMMARY | 2025-07-26 12:53 | XMS_ITS | Encounter Summary ---
Author Organization [facility] Address [address] [id number] Care Team Providers Care Glass Bender Name Role Phone JudeJohn rodriguez Primary Care Provider [phone] Melissa Barron MD Unavailable Eli Echevarria MA Unavailable Unavailable Reason for Visit * Reason Onset Date Comments Medications Refill 12/10/2011 Encounter Details Date Type Department Care Team (Late st Contact Info) Description 12/10/2011 Refill [facility] [address], [address] [place] [address] Amanda Wang LPN HNP (herniated [...] * Telephone Encounter - Amanda Wang - 12/15/2011 8:54 AM EDT Pt aware script is ready for brick picker * Telephone Encounter - Amanda Wang - 12/10/2011 2:20 PM EDT Last appt- 10-21-11 Next appt- 01-21-12 Last tox- 10-21-11, ok documented in this encounter Plan of Treatment Upcoming Encounters Date Type Department Care Team (Late st Contact Info) Description 09/06/2025 2:00 PM EST Treatment [facility] [address] [facility] A, 2nd Floor, [address] [place] [address] Yue Kendrick MD [address] [facility] A 2ND FLOOR [place], [place] [id number] documented as of this encounter Visit Diagnoses Diagnosis HNP (herniated nucleus pulposus) Displacement of intervertebral disc, site unspecified, without myelopathy Lumbar spondylosis Lumbosacral spondylosis without myelopathy documented in this encounter Care Teams Glass Bender Relationship Specialty Start Date End Date John Schaefer DO [address] [place] [phone] PCP - General Family Medicine 01/24/10 Melissa Barron MD [address] [place] [address] Pulmonary Disease 06/16/22 Eli Echevarria MA 08/11/22 documented as of this encounter
--- OUTSIDE RECORDS SUMMARY | 2025-07-26 12:53 | XMS_ITS | Encounter Summary ---
Author Organization [facility] Address [address] [place] [address] Care Team Providers Care Medical And Scientific Illustrator Name Role Phone JudeJohn rodriguez Primary Care Provider [phone] Melissa Barron MD Unavailable Eli Echevarria MA Unavailable Unavailable Encounter Details Date Type Department Care Team (Late Contact Info) Description 08/21/2024 Refill [facility] [address] [place] [address], 2nd Floor, [address] [place] [address] Jessica Ramirez RN Osteoarthritis of spine with radiculopathy, lumbar region [...] encounter Miscellaneous Notes * Telephone Encounter - Jessica Ramirez LPN - 08/21/2024 9:19 AM EST Medication needs sent to [facility] [place] is out of medication. Alan last filled 07/17/2024. documented in this encounter Plan of Treatment Upcoming Encounters Date Type Department Care Team (Late Contact Info) Description 09/06/2025 2:00 PM EST Treatment [facility] [address] A, 2nd Floor, [address] [place] [address] Yue Kendrick MD [address] [facility] [address] FLO[address] [place], [place] [phone] documented as of this encounter Visit Diagnoses Diagnosis Osteoarthritis of spine with radiculopathy, lumbar region documented in this encounter Care Teams Medical And Scientific Illustrator Relationship Specialty Start Date End Date John Schaefer DO [address] [place] [phone] PCP - General Family Medicine 01/24/10 Melissa Barron MD [address] [place], [place] [address] [place] [address] Pulmonary Disease 06/16/22 Eli Echevarria MA 08/11/22 documented as of this encounter
--- OUTSIDE RECORDS SUMMARY | 2025-07-26 12:53 | XMS_ITS | Encounter Summary ---
Author Organization [facility] Address [address] [id number] Care Team Providers Care Metal Tube Cutter Name Role Phone John Schaefer Primary Care Provider Melissa Barron MD Unavailable Eli Echevarria MA Unavailable Unavailable Reason for Referral * Radiology Services (Routine) - Closed Specialty Diagnoses / Procedures Referred By Contac t Referred To Contact Radiology Diagnoses Personal history of tobacco use, presenting hazards to health Procedures CT LUNG ELIGIBLE LOW DOSE SCREENING Melissa Barron MD [address] [place] [address] Phone: tel: fax: [facility] [address] [place] [phone] Phone: tel: Referral ID Status Reason Start Date Expiration Date Visits Re quested Visits Authorized [id number] Closed 08/05/2022 08/05/2023 1 1 Encounter Details Date Type Department Care Team (Late st Contact Info) Description 08/05/2022 Orders Only [facility] [address] [place], [place] [phone] Melissa Barron MD [address] [place] [address] Personal history of tobacco use, presenting hazards to health (Primary Dx) Social History Tobacco Use Types Packs/Day Years [...] EST Treatment [facility] [address] [place] [address], 2nd Floor, [address] [place] [address] Yue Kendrick MD [address] [place] [address] [address] [place] [address] documented as of this encounter Results * CT LUNG ELIGIBLE LOW DOSE SCREENING (09/04/2022 2:34 PM EST) Anatomical Region Laterality Modality Chest Computed Tomogra phy 09/04/2022 Narrative 09/08/2022 8:42 AM EST [facility] [address] [place] [address] Radiology PATIENT NAME: Marvin Staton MR#: [id number] PROCEDURE DATE: 09/04/2022 ROOM#: ORDERING PHYS: Melissa Anderson ADDENDUM Yes, there is a history of smoking. <====== END ADDENDUM 10/01/2022 06:31 am ======> EXAM: Chest LDCT INDICATION: Screening COMPARISON: None. TECHNIQUE: Low dose helical thin section data acquisition with MPRs. Computer aided nodule detection was used. Dose reduction methods were utilized. FINDINGS: There is an elevated left hemidiaphragm, background emphysema, as well as areas of pleural parenchymal scarring (greatest to the lung apices). There is a discrete noncalcified subpleural right apical pulmonary nodule that measures 5 mm. The limited central airway is grossly patent insofar as it can be evaluated. The thyroid gland is somewhat heterogeneous on limited inspection and appears mildly prominent. A few calcified mediastinal left hilar lymph nodes are noted compatible with a previous granulomatous disease exposure. There is streak artifact on left anterior chest wall electronic cardiac device. No mediastinal lymphadenopathy by size criteria or pericardial/pleural effusion. Coronary artery and vascular calcifications (with additional calcifications at the level of the aortic valve versus valvuloplasty, soft tissue changes at the anterior abdominal wall question related to previous surgical intervention with fat necrosis, tiny hiatal hernia, a few additional incidental chronic findings are noted. IMPRESSION: 1. Chronic changes without acute intrathoracic abnormality. 2. Discrete 5 mm noncalcified right apical pulmonary nodule. 3. Other findings as discussed. ASSESSMENT: Lung-RADS category 2 - Benign appearance or behavior. Nodules with a very low likelihood of becoming a clinically active cancer due to small size or lack of growth. Findings include: Juxtapleural nodule < 10mm mean diameter at baseline or new and solid; smooth margins; and oval, lentiform, or tirangular shape. Solid nodule(s): < 6mm or new < 4mm. Part solid nodule(s): < 6 mm total diameter on baseline screening. Non solid nodule(s) (GGN): < 30 mm or 30 mm and unchanged or slowly growing. Airway Nodule, subsegmental at baseline, new, or stable. Category 3 nodule that is stable or decreased in size at 6 month follow-up CT, Catagory 3 or 4a that resolve on follow up, category 4b findings proven to be benign in etiology following appropriate diagnostic workup.. Continue annual screening. MODIFIER: None. RECOMMENDATION: Chest LDCT in 12 months. THIS IS AN ELECTRONICALLY VERIFIED REPORT 10/01/2022 6:31 AM: MD Nathanael Guerrero MD cyrus TD: 10/01/2022 JOB #: [id number] Radiology Page 1 of 1 COPY Procedure Note Nathanael Van MD - 10/01/2022 [place] [address] Radiology PATIENT NAME: Marvin Staton MR#: [id number] PROCEDURE DATE: 09/04/2022 ROOM#: ORDERING PHYS: Torres Anderson ADDENDUM Yes, there is a history of smoking. <====== END ADDENDUM 10/01/2022 06:31 am ======> EXAM: Chest LDCT INDICATION: Screening COMPARISON: None. TECHNIQUE: Low dose helical thin section data acquisition with MPRs. Computer aided nodule detection was used. Dose reduction methods were utilized. FINDINGS: There is an elevated left hemidiaphragm, background emphysema,as well as areas of pleural parenchymal scarring (greatest to the lungapices). There is a discrete noncalcified subpleural right apical pulmonarynodule that measures 5 mm. The limited central airway is grossly patent insofaras it can be evaluated. The thyroid gland is somewhat heterogeneous onlimited inspection and appears mildly prominent. A few calcified mediastinalleft hilar lymph nodes are noted compatible with a previous granulomatousdisease exposure. There is streak artifact on left anterior chest wallelectronic cardiac device. No mediastinal lymphadenopathy by size criteria or pericardial/pleural effusion. Coronary artery and vascularcalcifications (with additional calcifications at the level of the aortic valve versus valvuloplasty, soft tissue changes at the anterior abdominal wallquestion related to previous surgical intervention with fat necrosis, tiny hiatal hernia, a few additional incidental chronic findings are noted. IMPRESSION: 1. Chronic changes without acute intrathoracic abnormality. 2. Discrete 5 mm noncalcified right apical pulmonary nodule. 3. Other findings as discussed. ASSESSMENT: Lung-RADS category 2 - Benign appearance or behavior.Nodules with a very low likelihood of becoming a clinically active cancer due to small size or lack of growth. Findings include: Juxtapleural nodule <10mm mean diameter at baseline or new and solid; smooth margins; and oval, lentiform, or tirangular shape. Solid nodule(s): < 6mm or new < 4mm.Part solid nodule(s): < 6 mm total diameter on baseline screening. Non solid nodule(s) (GGN): < 30 mm or 30 mm and unchanged or slowly growing.Airway Nodule, subsegmental at baseline, new, or stable. Category 3 nodule thatis stable or decreased in size at 6 month follow-up CT, Catagory 3 or 4athat resolve on follow up, category 4b findings proven to be benign inetiology following appropriate diagnostic workup.. Continue annual screening. MODIFIER: None. RECOMMENDATION: Chest LDCT in 12 months. THIS IS AN ELECTRONICALLY VERIFIED REPORT 10/01/2022 6:31 AM: MD Nathanael Guerrero MD cyrus TD: 10/01/2022 JOB #: [id number] Radiology Page 1 of 1COPY Melissa Barron MD IMG CT ORDERABLES Edited Result - Final documented in this encounter Visit Diagnoses Diagnosis Personal history of tobacco use, presenting hazards to health- Primary Personal history of tobacco use, presenting hazards to health documented in this encounter Care Teams Metal Tube Cutter Relationship Specialty Start Date End Date John Schaefer DO [address] [place] [phone] PCP - General Family Medicine 01/24/10 Melissa Barron MD [address] [place] [address] Pulmonary Disease 06/16/22 Eli Echevarria MA 08/11/22 documented as of this encounter
--- OUTSIDE RECORDS SUMMARY | 2025-07-26 12:53 | XMS_ITS | Encounter Summary ---
Author Organization [facility] Address [address] [place] [address] Care Team Providers Care Template Clerk Name Role Phone John Schaefer Primary Care Provider [phone] Melissa Barron MD Unavailable Eli Echevarria MA Unavailable Unavailable Reason for Visit * Reason Onset Date Comments Medications Refill 12/04/2011 Encounter Details Date Type Department Care Team (Late Contact Info) Description 12/04/2011 Refill [facility] [address] [place] [phone] Arash Kim MD [address] [place] [address] Medications Refill Social History Tobacco Use Types [...] [facility] [address] [facility], 2nd Floor, [address] [place] [address] Yue Kendrick MD [address] [facility] [address] [address] 2ND FLOOR [place], [place] [phone] documented as of this encounter Visit Diagnoses Not on filedocumented in this encounter Care Teams Template Clerk Relationship Specialty Start Date End Date John Schaefer DO [address] [place] [phone] PCP - General Family Medicine 01/24/10 Melissa Barron MD [address] [place] [phone] Pulmonary Disease 06/16/22 Eli Echevarria MA 08/11/22 documented as of this encounter
--- OUTSIDE RECORDS SUMMARY | 2025-07-26 12:53 | XMS_ITS | Encounter Summary ---
Author Organization [facility] Address [address] [place] [address] Care Team Providers Care Drilling Field Professional Name Role Phone John Schaefer DO Primary Care Provider [phone] Melissa Barron MD Unavailable Eli Echevarria MA Unavailable Unavailable Encounter Details Date Type Department Care Team (Late st Contact Info) Description 11/13/2005 Historical Encounter [facility] [place] Mcgill MD [address] [facility] [place] [phone] Social History Tobacco Use Types Packs/Day Years [...] EST Treatment [facility] [address] [place] A, 2nd Floor, [address] [place] [address] Yue Kendrick MD [address] [facility] A 2ND FLOOR [place], [place] [phone] documented as of this encounter Visit Diagnoses Not on filedocumented in this encounter Care Teams Drilling Field Professional Relationship Specialty Start Date End Date John Schaefer DO [address] [place] [address] PCP - General Family Medicine 01/24/10 Melsisa Barron MD [address] [place] [address] Pulmonary Disease 06/16/22 Eli Echevarria MA 08/11/22 documented as of this encounter
--- NOTE | 2025-07-26 13:00 | CA_ITS ---
FINAL REPORT TECHNIQUE: Morris scale, color and spectral doppler images of the bilateral carotid arteries were obtained. CLINICAL HISTORY: ADT, hx of endarterectomy bilaterally per patient, known occlusion of right ICA, HTN, HLD, ex smoker, pacemaker COMPARISON: 12/08/2023 FINDINGS: The right common and internal carotid arteries are known to be occluded. The right vertebral artery is normal in direction. Peak systolic velocity in the left internal carotid artery is 94 cm/sec. The internal carotid to common carotid artery ratio is 1.0. There is no significant carotid artery stenosis and moderate plaque formation. The left vertebral artery is normal in direction. IMPRESSION: Known right carotid artery occlusion. Less than 50% stenosis is present in the left carotid artery. Antegrade flow is present in the bilateral vertebral arteries. Reviewed, Interpreted and Dictated by Francisco Valentino MD Transcribed by Shahla Agrawal Authenticated and . [facility]
[2025-07-26 14:35] LABS: Hematocrit 42.3 % (42.0-52.0); Hemoglobin 14.2 g/dL (14.1-18.0); Immature Granulocytes % 0.4 %; Mean Corpuscular HGB Conc 33.6 g/dL (31.8-35.4); Mean Corpuscular Hemoglobin 31.6 pg (27.0-31.2); Mean Corpuscular Volume 94.2 fl (80-94); Nucleated Red Blood Cells % 0 %; Platelet Count 269 K/mm3 (142-424); Red Blood Count 4.49 M/mm3 (4.60-6.20); Red Cell Distribution Width-SD 38.9 fL; White Blood Count 11.4 K/mm3 (4.8-10.8)
[2025-07-26 15:07] LABS: Alanine Aminotransferase 31 U/L (12-78); Albumin Level 5.0 g/dl (3.5-5.0); Alkaline Phosphatase 87 U/L (38-126); Anion Gap 12.8 mEq/L (5-15); Aspartate Amino Transferase 25 U/L (17-59); Bilirubin,Direct 0.2 mg/dl (0.0-0.4); Bilirubin,Indirect 0.5 mg/dL (0.0-0.9); Bilirubin,Total 0.7 mg/dl (0.2-1.3); Bilirubin,Unconjugated 0.6 mg/dL (0.0-1.1); Blood Urea Nitrogen 16 mg/dl (9-20); Calcium 9.8 mg/dl (8.4-10.2); Carbon Dioxide 28 mmol/L (22.0-30.0); Chloride 103 mmol/L (98-107); Cholesterol 178 mg/dl (140-200); Creatinine,Serum 0.90 mg/dl (0.66-1.25); Estimated Glomerular Filt Rate 85 ml/min (>60); GFR (African American) 103 ML/MIN (>60); Glucose 117 mg/dl (74-100); HDL Cholesterol 47 mg/dl (40-60); Magnesium 2.1 mg/dl (1.6-2.3); Potassium 4.8 mmoL/L (3.5-5.1); Sodium 139 mmol/L (136-145); Total Protein,Serum 8.0 g/dl (6.3-8.2); Triglycerides 242 mg/dl (30-150)
[2025-07-26 15:25] LABS: Free T4 (Free Thyroxine) 1.12 ng/dl (0.78-2.19)
[2025-07-26 15:40] LABS: Thyroid Stimulating Hormone 2.92 uIU/mL (0.465-4.68)
[2025-08-03 13:16] LABS: Dopamine, Plasma 33.1 pg/mL (0.0-36.7); Epinephrine, Plasma 90.1 pg/mL (0.0-55.4); Norepinephrine, Plasma 1254 pg/mL (115-524)
== END 2025-07-26 23:59 | disposition home or self-care (01) ==
PROVIDERS: PCP Family Medicine; Visit Provider Nurse Practitioner Family
DX: E78.2 Mixed hyperlipidemia (principal); I65.23 Occlusion and stenosis of bilateral carotid arteries; I11.9 Hypertensive heart disease without heart failure
CPT/HCPCS: 36415; 80048; 80061; 80076; 82088; 82384; 83735; 83835; 84439; 84443; 85025; 93880

== ENCOUNTER 2025-07-30 10:33 | Outpatient (CLI) | payer MEDICARE, MEDICAID, SELFPAY ==
--- OUTSIDE RECORDS SUMMARY | 2025-07-10 13:15 | XMS_ITS | Encounter Summary ---
Author Organization [facility] Address [address] [place] [address] Care Team Providers Care Press Manager Name Role Phone JudeJohn rodriguez Primary Care Provider [phone] Melissa Barron MD Unavailable Eli Echevarria MA Unavailable Unavailable Reason for Visit * Reason Comments Back Pain Encounter Details Date Type Department Care Team (Late st Contact Info) Description 07/10/2025 1:15 PM EST Treatment [facility] [address] [address], [address] Floor, [address] [place] [address] Yue Kendrick MD [address] [facility] [address] [place] [address] Osteoarthritis of spine with radiculopathy, lumbar region [...] EST documented in this encounter Functional Status * Height Answer Date of Assessment Author 75 07/10/2025 1:15 PM Lilli Carroll RN * Weight Answer Date of Assessment Author [id number] 07/10/2025 1:15 PM Lilli Carroll RN * Spine and Pain Evaluation Question Answer Date of Assessment Author Fall Risk MEDIUM 07/10/2025 1:15 PM Lilli Foss RN BP 167/79 07/10/2025 1:16 PM Lilli Foss RN Pulse 60 07/10/2025 1:16 PM Lilli Foss RN Pain Level 2 07/10/2025 1:15 PM Lilli Foss RN ID BAND no 07/10/2025 1:15 PM Lilli Foss RN Urine Drug Screen [id number] 07/10/2025 1:15 PM Lilli Carroll RN Sleep Interference yes 07/10/2025 1:15 PM Lilli Carroll RN Presently working no 07/10/2025 1:15 PM Lilli Carroll RN Personal Belongings with patient 07/10/2025 1:15 PM Lilli Storey RN Drug Screen Date [id number] 07/10/2025 1:15 PM Lilli Baumann RN [place] [id number] 07/10/2025 1:15 PM Lilli Foss RN * PHQ-2 Question Answer Date of Assessment Author PHQ-2 SCORE 0 07/10/2025 1:14 PM Lilli Foss RN Over the last 2 weeks, how often have you been bothered by feeling down, depressed, or hopeless? Not at all 07/10/2025 1:14 PM Lilli Carroll RN Over the last 2 weeks, how often have you been bothered by feeling little interest or pleasure in doing things? Not at all 07/10/2025 1:14 PM Fernando Carroll RN * BSA (Calculated - sq m) Answer Date of Assessment Author 2.46 07/10/2025 1:15 PM Lilli Carroll RN * BMI (Calculated) Answer Date of Assessment Author 31.5 07/10/2025 1:15 PM Lilli Carroll RN documented as of this encounter Mental Status * Spine and Pain Evaluation Question Answer Entry Date Author BP 167/79 07/10/2025 1:16 PM Lilli Foss RN Pulse 60 07/10/2025 1:16 PM Lilli Foss RN Pain Level 2 07/10/2025 1:15 PM Lilli Foss RN documented in this encounter Progress Notes * Yue Kendrick MD - 07/10/2025 1:15 PM EST RE: Marvin Staton : 1960 REFERRING PROVIDER: No ref. provider found PRIMARY CARE PROVIDER: John Schaefer DO HISTORY OF PRESENT ILLNESS: Mr. Staton was seen in follow up at the [facility] pain center. LUIS MIGUEL report reviewed. He [...] CAD (coronary artery disease) Carotid artery stenosis COVID-19 2020 History of home oxygen therapy 1-1.5 LITERS PRN HLD (hyperlipidemia) HTN (hypertension) Lumbago Sleep apnea CPAP Stroke (HCC) T.I.A. Past Surgical History: Procedure Laterality Date AORTOGRAM WITH RUNOFF N/A 06/19/2010 AORTOGRAM WITH RUNOFF performed by Arash Kim MD at [facility] NEWSPAPER PRESS OPERATOR APPRENTICE HX CARDIAC CATHETERIZATION HX CAROTID ENDARTERECTOMY HX PERMANENT PACEMAKER LEFT HEART CATH N/A 06/19/2010 LEFT HEART CATH performed by Arash Kim MD at [facility] NEWSPAPER PRESS OPERATOR APPRENTICE Family History Problem Relation Name Age of Onset Heart Disease Mother cabg Cancer Sister lung cancer Cancer Brother lung cancer Cancer Brother lung cancer Heart Disease Brother [place] Hypertension Daughter Social History Socioeconomic History Marital [...] one tablet p.o. Q.8 hours (nationwide shortage). [place] 7.5 mg every 6 hours LUIS MIGUEL report reviewed. UDS 03/13/25 consistent. 3. INJECTIONS: not a candidate for injections as he is on anticoagulants with HX carotid stenosis 4. PHYSICAL THERAPY: Continue home exercise program as tolerated. 5. REFERRALS: None 6. SCHEDULING: Follow up in 2 months. Yue Kendrick M.D., 07/09/2025 6:03 AM documented in this encounter Plan of Treatment Upcoming Encounters Date Type Department Care Team (Late st Contact Info) Description 09/06/2025 2:00 PM EST Treatment [facility] [address] [place] [address], [address] Floor, [address] [place] [address] Yue Kendrick MD [address] [facility] [address] [place] [address] documented as of this encounter Visit Diagnoses Diagnosis Osteoarthritis of spine with radiculopathy, lumbar region documented in this encounter Care Teams Press Manager Relationship Specialty Start Date End Date John Schaefer DO [address] [place] [phone] PCP - General Family Medicine 01/24/10 Melissa Barron MD [address] [place] [id number] Pulmonary Disease 06/16/22 Eil Echevarria MA 08/11/22 documented as of this encounter
--- OUTSIDE RECORDS SUMMARY | 2025-07-30 10:41 | XMS_ITS | Encounter Summary ---
Author Organization [facility] Address [address] [place] [address] Care Team Providers Care Wood Sash And Frame Carpenter Name Role Phone JudeJohn rodriguez Primary Care Provider [phone] Melissa Barron MD Unavailable Eli Echevarria MA Unavailable Unavailable Reason for Visit * Reason Onset Date Comments Medications Refill 12/29/2017 Encounter Details Date Type Department Care Team (Late st Contact Info) Description 12/29/2017 Telephone [facility] [address], [address] [place] [phone] Yue Kendrick MD [address] [facility] [place] [place] [address] [address] Medications Refill Social History Tobacco Use Types [...] Treatment [facility] [address] [place] [address] A, 2nd Floor, [address] [place] [address] Yue Kendrick MD [address] [facility] [place] [address] [place] [address] documented as of this encounter Visit Diagnoses Not on filedocumented in this encounter Care Teams Wood Sash And Frame Carpenter Relationship Specialty Start Date End Date John Schaefer DO [address] [place] [phone] PCP - General Family Medicine 01/24/10 Melissa Barron MD [address] [place] [address] Pulmonary Disease 06/16/22 Eli Echevarria MA 08/11/22 documented as of this encounter
--- OUTSIDE RECORDS SUMMARY | 2025-07-30 10:41 | XMS_ITS | Encounter Summary ---
Author Organization [facility] Address [address] [place] [address] Care Team Providers Care Artificial Insemination Technician Name Role Phone John Schaefer Primary Care Provider [phone] Melissa Barron MD Unavailable Eli Echevarria MA Unavailable Unavailable Encounter Details Date Type Department Care Team (Late st Contact Info) Description 09/18/2019 Telephone [facility] [address] [facility] A, 2nd Floor, [address] [place] [address] Yue Kendrick MD [address] [facility] [place] [address] [address] Social History Tobacco Use Types Packs/Day Years [...] NEEDS A NURSE TO CALL ABOUT MEDS [phone] documented in this encounter Plan of Treatment Upcoming Encounters Date Type Department Care Team (Late st Contact Info) Description 09/06/2025 2:00 PM EST Treatment [facility] [address] A, 2nd Floor, [address] [place] [address] Yue Kendrick MD [address] [facility] [address] [place] [address] [address] documented as of this encounter Visit Diagnoses Not on filedocumented in this encounter Care Teams Artificial Insemination Technician Relationship Specialty Start Date End Date John Schaefer DO [address] [place] [phone] PCP - General Family Medicine 01/24/10 Melissa Barron MD [address] [place] [address] Pulmonary Disease 06/16/22 Eli Echevarria MA 08/11/22 documented as of this encounter
--- OUTSIDE RECORDS SUMMARY | 2025-07-30 10:41 | XMS_ITS | Encounter Summary ---
Author Organization [facility] Address [address] [place] [address] Care Team Providers Care Freight Trucker Name Role Phone JudeJohn rodriguez Primary Care Provider [phone] Melissa Barron MD Unavailable Eli Echevarria MA Unavailable Unavailable Reason for Visit * Reason Onset Date Comments Medications Refill 09/13/2018 Encounter Details Date Type Department Care Team (Late st Contact Info) Description 09/13/2018 Telephone [facility] [address], [address] [place] [phone] Yue Kendrick MD [address] [facility] [place] [address] [place] [address] Medications Refill Social History Tobacco Use Types [...] PA for morphine, per [facility] [place]. [phone] documented in this encounter Plan of Treatment Upcoming Encounters Date Type Department Care Team (Late st Contact Info) Description 09/06/2025 2:00 PM EST Treatment [facility] [address] [place] A, 2nd Floor, [address] [place] [address] Yue Kendrick MD [address] [facility] [place] [place] [address] [address] documented as of this encounter Visit Diagnoses Not on filedocumented in this encounter Care Teams Freight Trucker Relationship Specialty Start Date End Date John Schaefer DO [address] [place] [phone] PCP - General Family Medicine 01/24/10 Melissa Barron MD [address] [place] [address] Pulmonary Disease 06/16/22 Eli Echevarria MA 08/11/22 documented as of this encounter
--- OUTSIDE RECORDS SUMMARY | 2025-07-30 10:41 | XMS_ITS | Encounter Summary ---
Author Organization [facility] Address [address] [place] [address] Care Team Providers Care Central Office Maintainer Name Role Phone HollisJohn bautista Primary Care Provider [phone] Melissa Barron MD Unavailable Eli Echevarria MA Unavailable Unavailable Reason for Visit * Reason Onset Date Comments Medications Refill 03/07/2019 Encounter Details Date Type Department Care Team (Late st Contact Info) Description 03/07/2019 Telephone [facility] [address] [facility] A, 2nd Floor, [address] [place] [address] Yue Kendrick MD [address] [facility] [address] A [address] FLOOR [place] [phone] Medications Refill Social History Tobacco Use Types [...] PA for morphine. [facility] [place]. documented in this encounter Plan of Treatment Upcoming Encounters Date Type Department Care Team (Late st Contact Info) Description 09/06/2025 2:00 PM EST Treatment [facility] [address] [place] [address] [place] A, 2nd Floor, [address] [place] [address] Yue Kendrick MD [address] [facility] [place] [address] [address] documented as of this encounter Visit Diagnoses Not on filedocumented in this encounter Care Teams Central Office Maintainer Relationship Specialty Start Date End Date John Schaefer DO [address] [place] [phone] PCP - General Family Medicine 01/24/10 Melissa Barron MD [address] [place] [address] Pulmonary Disease 06/16/22 Eli Echevarria MA 08/11/22 documented as of this encounter
--- OUTSIDE RECORDS SUMMARY | 2025-07-30 10:41 | XMS_ITS | Encounter Summary ---
Author Organization [facility] Address [address] [phone] Care Team Providers Care Bank Messenger Name Role Phone John Schaefer Primary Care Provider [phone] Melissa Barron MD Unavailable Eli Echevarria MA Unavailable Unavailable Reason for Visit * Reason Onset Date Comments Medication - Prior Authorization 12/30/2017 Encounter Details Date Type Department Care Team ([facility] Contact Info) Description 12/30/2017 Telephone [facility] [address], [address] [place] [phone] Namrata Denise, customer support analyst - Prior Authorization Social History Tobacco Use [...] Upcoming Encounters Date Type Department Care Team ([facility] Contact Info) Description 09/06/2025 2:00 PM EST Treatment [facility] [address] [facility] [place] A, 2nd Floor, [address] [place] [address] Yue Kendrick MD [address] [facility] [address] 2ND FLOOR [place], [place] [phone] documented as of this encounter Visit Diagnoses Not on filedocumented in this encounter Care Teams Bank Messenger Relationship Specialty Start Date End Date John Schaefer DO [address] [place] [phone] PCP - General Family Medicine 01/24/10 Melissa Barron MD [address] [place] [address] Pulmonary Disease 06/16/22 Eli Echevarria MA 08/11/22 documented as of this encounter
--- OUTSIDE RECORDS SUMMARY | 2025-07-30 10:41 | XMS_ITS ---
Author Organization [facility] Care Team Providers Care Huc Name Role Phone Marcellus Meyers Unavailable Unavailable Brianna Parmar Unavailable Unavailable Christy Loomis Unavailable Unavailable Allergies and adverse reactions No Known Allergies Care Team Name Role Address Phone Organization Dates Marcellus Meyers PCP [address], [place], [address], [place] (Office): : : [facility] 07/07/2021 - 10/31/2021 Brianna Parmar [address], [place], [address], [place] (Office): : : (Pager): [facility] 07/07/2021 - 10/31/2021 Christy Loomis [address] [place], [address], [place] (Office): : [facility] 07/07/2021 - 10/31/2021 Immunizations Immunization Status Vaccine [...] and Other information Code: Code System OID:[id number] .[id number]. 5 Code System Name: Source of Payment Typology (PHDSC) Display: Managed Care (Private) Translation: Code: Code System: OID:2.16.840.1 .[id number]. 1336 Code System Name: Insurance Type Code ([id number]) Display Name: Health Maintenance Organization (HMO) Plan Problems Problem # Description Date of onset Resolved Date Code CodeSystem Concern Status 1 DYSPHAGIA, OROPHARYNGEAL PHASE 07/14/[address] active 2 MUSCLE WEAKNESS (GENERALIZED) 07/08/[address] active 3 ACUTE AND CHRONIC RESPIRATORY FAILURE, UNSPECIFIED WHETHER WITH HYPOXIA OR HYPERCAPNIA 07/07/[address] active 4 ANEMIA, UNSPECIFIED 07/07/[address] active 5 ATHEROSCLEROTIC HEART DISEASE OF [place] CORONARY ARTERY WITHOUT ANGINA PECTORIS 07/07/[address] active 6 CANDIDAL STOMATITIS 07/07/[address] active 7 CARDIOMEGALY 07/07/[address] active 8 CHRONIC ATRIAL FIBRILLATION 07/07/[address] active 9 CONSTIPATION, UNSPECIFIED 07/07/[address] active 10 DEPENDENCE ON RESPIRATOR [VENTILATOR] STATUS 07/07/2007/07/[address] completed 11 DYSPHAGIA, UNSPECIFIED 07/07/[address] active 12 ESSENTIAL (PRIMARY) HYPERTENSION 07/07/[address] active 13 GASTROSTOMY STATUS 07/07/[address] active 14 GENERALIZED EDEMA 07/07/[address] active 15 HYPERLIPIDEMIA, UNSPECIFIED 07/07/[address] active 16 HYPOKALEMIA 07/07/[address] active 17 MAJOR DEPRESSIVE DISORDER, RECURRENT, UNSPECIFIED 07/07/[address] active 18 OBSTRUCTIVE SLEEP APNEA (ADULT) (PEDIATRIC) 07/07/[address] active 19 OCCLUSION AND STENOSIS OF RIGHT CAROTID ARTERY 07/07/[address] active 20 OTHER DISORDERS OF PLASMA-PROTEIN METABOLISM, NOT ELSEWHERE CLASSIFIED 07/07/[address] active 21 PERSONAL HISTORY OF OTHER DISEASES OF THE DIGESTIVE SYSTEM 07/07/[address] active 22 PERSONAL HISTORY OF PEPTIC ULCER DISEASE 07/07/[address] active 23 PNEUMONIA DUE TO PSEUDOMONAS 07/07/20 21 10/17/[address] completed 24 PRESENCE OF CARDIAC PACEMAKER 07/07/[address] active 25 SICK SINUS SYNDROME 07/07/[address] active 26 TRACHEOSTOMY STATUS 07/07/[address] active 27 TYPE 2 DIABETES MELLITUS WITH HYPERGLYCEMIA 07/07/[address] active Reason for Referral No Reasons for Referral Entered Social History Social History Observation Description Start Date End Date Code Code System Current Smoking Status Tobacco smoking consumption unknown 891272039 SNOMED CT Sex Assigned At Male 1960 96184-7 [facility] Gender Identity Sexual Orientation Vital Signs Code Code System Vitals Name Values and Units Timing Information 34430-2 [facility] O2 % BldC Oximetry Value=99.0 Units= % 10/31/2021 8462-4 [facility] Blood Pressure-Diastolic Value=72 Un its=mmHg 10/31/2021 8480-6 [facility] Blood Pressure-Systolic Qzmfm=116 Un its=mmHg 10/31/2021 8867-4 [facility] Heart rate Value=74.0 Units=/min 8310-5 [facility] Body Temperature Value=97.6 Units= F 10/31/2021 9279-1 [facility] Respiratory Rate Value=20.0 Units=/m in 10/31/2021 05886-8 [facility] Pain Level Value=0.0 10/31/2021 17060-7 [facility] Weight Ztjvu=351.5 Units=Lbs 2339-0 [facility] Blood Sugar Gfaxt=578.0 Units=mg/dL 08/04/2021 8302-2 [facility] Height Value=75.0 Units=Inches 07/08/2021
--- OUTSIDE RECORDS SUMMARY | 2025-07-30 10:41 | XMS_ITS | Encounter Summary ---
Author Organization [facility] Address [address] [place] [address] Care Team Providers Care Threat Analyst Name Role Phone John Schaefer Primary Care Provider [phone] Melissa Barron MD Unavailable Eli Echevarria MA Unavailable Unavailable Encounter Details Date Type Department Care Team (Late Contact Info) Description 03/13/2019 Telephone [facility] [address] [facility], 2nd Floor, [address] [place] [address] Lilli Henriquez RN Social History [...] Treatment [facility] [address] [facility], 2nd Floor, [address] [place] [address] Yue Kendrick MD [address] [place] [address] documented as of this encounter Visit Diagnoses Not on filedocumented in this encounter Care Teams Threat Analyst Relationship Specialty Start Date End Date John Schaefer DO [address] [place] [phone] PCP - General Family Medicine 01/24/10 Melissa Barron MD [address] [place] [address] Pulmonary Disease 06/16/22 Eli Echevarria MA 08/11/22 documented as of this encounter
--- OUTSIDE RECORDS SUMMARY | 2025-07-30 10:41 | XMS_ITS | Encounter Summary ---
Author Organization [facility] Address [address] [id number] Care Team Providers Care Doctorate Of Chiropractic Name Role Phone John Schaefer Primary Care Provider [phone] Melissa Barron MD Unavailable Eli Echevarria MA Unavailable Unavailable Reason for Visit * Reason Onset Date Comments Medication - Prior Authorization 12/23/2016 Encounter Details Date Type Department Care Team ([facility] Contact Info) Description 12/23/2016 Telephone [facility] [address], [address] [place] [address] Minerva Faust, [place] former arbor end - Prior Authorization Social History Tobacco Use [...] Upcoming Encounters Date Type Department Care Team ([facility] Contact Info) Description 09/06/2025 2:00 PM EST Treatment [facility] [address] [place] [address] A, 2nd Floor, [address] [place] [address] Yue Kendrick MD [address] [facility] [address] [place] [address] documented as of this encounter Visit Diagnoses Not on filedocumented in this encounter Care Teams Doctorate Of Chiropractic Relationship Specialty Start Date End Date John Schaefer DO [address] [place] [phone] PCP - General Family Medicine 01/24/10 Melissa Barron MD [address] [place] [address] Pulmonary Disease 06/16/22 Eli Echevarria MA 08/11/22 documented as of this encounter
--- OUTSIDE RECORDS SUMMARY | 2025-07-30 10:41 | XMS_ITS | Clinical Summary ---
Author Organization [facility] Address [address] [place] [address] Care Team Providers Care Division Road Supervisor Name Role Phone Arash Kim Primary Care Provider [phone] Allergies No known active allergies Medications influenza quadrivalent vaccine (FLUBLOK) 0.5 ML solution prefilled syringe Inject 0.5 mL into the shoulder, thigh, or buttocks Before Discharge (Flu vaccine) for up to 1 dose. 0.5 mL 1 Active ipratropium-albut tiara (DUO-NEB) 0.5-2.5 mg/3 mL nebulizer Inhale 3 mL Every 6 hours as needed. for shortness of breath. 0 1 Active nystatin (MYCOSTATIN) 693915 UNIT/ML suspension Apply 5 mL (500,000 Units [...] 6:56 PM 07/07/2021 5:[address] Supervisor Relationship Specialty Start Date End Date Arash Kim [address] [place] [phone] PCP - General 05/23/21
--- OUTSIDE RECORDS SUMMARY | 2025-07-30 10:41 | XMS_ITS | Encounter Summary ---
Author Organization [facility] Address [address] [place] [address] Care Team Providers Care Software Developer Manager Name Role Phone John Schaefer Primary Care Provider [phone] Melissa Barron MD Unavailable Eli Echevarria MA Unavailable Unavailable Reason for Visit * Reason Onset Date Comments Medication - Prior Authorization 09/19/2018 Encounter Details Date Type Department Care Team (Late st Contact Info) Description 09/19/2018 Telephone [facility] [address], [address] [place] [address] Yue Kendrick MD [address] [facility] [address] [place] [address] [address] Medication - Prior Authorization Social History Tobacco [...] a nurse. Wants a return call at [phone]. Calling to check on status of PA on morphine requested on 09/13/18. Please advise. documented in this encounter Plan of Treatment Upcoming Encounters Date Type Department Care Team (Late st Contact Info) Description 09/06/2025 2:00 PM EST Treatment [facility] [address] [facility] [place] [address], 2nd Floor, [address] [place] [address] Yue Kendrick MD [address] [facility] [address] [place] [address] [address] documented as of this encounter Visit Diagnoses Not on filedocumented in this encounter Care Teams Software Developer Manager Relationship Specialty Start Date End Date John Schaefer DO [address] [place] [phone] PCP - General Family Medicine 01/24/10 Melissa Barron MD [address] [place] [address] Pulmonary Disease 06/16/22 Eli Echevarria MA 08/11/22 documented as of this encounter
--- OUTSIDE RECORDS SUMMARY | 2025-07-30 10:41 | XMS_ITS | Clinical Summary ---
Author Organization [facility] Address [address] [place] [address] Care Team Providers Care Watch Case Polisher Name Role Phone John Schaefer Primary Care Provider [phone] Melissa Barron MD Unavailable KitEli ellington MA [...] (08/17/2022): Added automatically from request for surgery [id number] HNP (herniated nucleus pulposus) 09/22/2010 Lumbar spondylosis 09/22/2010 Degeneration of lumbar or lumbosacral interverte bral disc 09/22/2010 Displacement of lumbar inter vertebral disc without myelopathy 09/22/2010 Spasm of muscle 09/22/2010 Neuralgia, neuritis, and radiculitis, unspecifie d 09/22/2010 HTN (hypertension), benign 01/22/2010 Benign neoplasm of thyroid glands 01/22/2010 Bradycardia 01/22/2010 CAD (coronary artery disease) 01/22/2010 Coronary atherosclerosis of [place] coronary hiwot ry 01/22/2010 Carotid artery stenosis 01/22/2010 Dizziness and giddiness 01/22/2010 Lumbago 01/22/2010 HLD (hyperlipidemia) 01/22/2010 Primary pulmonary hypertension 01/22/2010 Thyroid nodule 01/22/2010 Labyrinthitis, unspecified 01/22/2010 T.I.A. 01/22/2010 Encounters Date Type Department Care Team Description 07/10/2025 1:15 PM EST Treatment [facility] [address], 2nd Floor, [address] [place] [address] Yue Kendrick MD Osteoarthritis of spine with radiculopathy, lumbar region 07/10/2025 Travel 05/08/2025 12:30 PM EDT Treatment [facility] [address] [facility], 2nd Floor, [address] [place] [address] Yue Kendrick MD Osteoarthritis of spine with radiculopathy, lumbar region 05/08/2025 Travel from Last 3 Months Family History Medical History Relation Name Comments Cancer Brother 1 lung cancer Cancer Brother 2 lung cancer Heart Disease Brother 2 HI Hypertension Daughter 2 Heart Disease Mother cabg Cancer Sister lung cancer Relation Name Status Comments Brother 1 (Age 47) HI Brother 2 Daughter 1 Alive htn Daughter [...] Treatment [facility] [address] A, 2nd Floor, [address] [place] [address] Yue Kendrick MD [address] [facility] [address] [place] [address] [address] Health Maintenance Due Date Last Done Comments [...] this topic Medical Devices Implanted Type Area Professor Of Engineering Device Identifier Shelf Expiration Date Model / Serial / Lot Pacemaker Insurance MEDICAL ASSISTANCE Member Subscriber Plan / Payer (Ef fective 2024-Present) Name:Marvin Staton Relation to Subscriber:Self Name:Marvin Staton Payer ID:Not on file Group ID:Not on file Type:Not on file Address: [address] MEDICAL ASSISTANCE Advance Directives * Full Code (Latest Code Status on File) Date Activated Date Inactivated Comments 08/19/2022 11:54 AM 08/19/2022 6:32 PM Care Teams Watch Case Polisher Relationship Specialty Start Date End Date John Schaefer DO [address] [place] [phone] PCP - General Family Medicine 01/24/10 Melissa Barron MD [address] [place] [address] Pulmonary Disease 06/16/22 Eli Echevarria MA 08/11/22
--- OUTSIDE RECORDS SUMMARY | 2025-07-30 10:41 | XMS_ITS | Encounter Summary ---
Author Organization [facility] Address [address] [id number] Care Team Providers Care Associate Merchandiser Name Role Phone JudeJohn rodriguez Primary Care Provider [phone] Melissa Barron MD Unavailable Eli Echevarria MA Unavailable Unavailable Encounter Details Date Type Department Care Team (Late st Contact Info) Description 03/14/2019 Telephone [facility] [address] [facility], 2nd Floor, [address] [place] [address] Magy Decker, RN Social History [...] [facility] [address] [facility] [place] A, 2nd Floor, [address] [place] [address] Yue Kendrick MD [address] [facility] [address] [place] [address] [address] documented as of this encounter Visit Diagnoses Not on filedocumented in this encounter Care Teams Associate Merchandiser Relationship Specialty Start Date End Date John Schaefer DO [address] [place] [phone] PCP - General Family Medicine 01/24/10 Melissa Barron MD [address] [place] [address] Pulmonary Disease 06/16/22 Eli Echevarria MA 08/11/22 documented as of this encounter
--- OUTSIDE RECORDS SUMMARY | 2025-07-30 10:42 | XMS_ITS | Encounter Summary ---
Author Organization [facility] Address [address] [id number] Care Team Providers Care Professional Wrestler Name Role Phone JudeJohn rodriguez Primary Care Provider [phone] Melissa Barron MD Unavailable Eli Echevarria MA Unavailable Unavailable Reason for Visit * Reason Onset Date Comments Medications Refill 12/10/2011 Encounter Details Date Type Department Care Team (Late st Contact Info) Description 12/10/2011 Refill [facility] [address], [address] [place] [address] Amanda Wang LPN HNP (herniated [...] EDT Pt aware script is ready for continuous pickling line pickler helper * Telephone Encounter - Amanda Wang - 12/10/2011 2:20 PM EDT Last appt- 10-21-11 Next appt- 01-21-12 Last tox- 10-21-11, ok documented in this encounter Plan of Treatment Upcoming Encounters Date Type Department Care Team (Late st Contact Info) Description 09/06/2025 2:00 PM EST Treatment [facility] [address] [facility] A, 2nd Floor, [address] [place] [address] Yue Kendrick MD [address] [facility] [address]ND FLOOR [place], [place] [address] documented as of this encounter Visit Diagnoses Diagnosis HNP (herniated nucleus pulposus) Displacement of intervertebral disc, site unspecified, without myelopathy Lumbar spondylosis Lumbosacral spondylosis without myelopathy documented in this encounter Care Teams Professional Wrestler Relationship Specialty Start Date End Date John Schaefer DO [address] [place] [phone] PCP - General Family Medicine 01/24/10 Melissa Barron MD [address] [place] [address] Pulmonary Disease 06/16/22 Eli Echevarria MA 08/11/22 documented as of this encounter
--- OUTSIDE RECORDS SUMMARY | 2025-07-30 10:42 | XMS_ITS | Encounter Summary ---
Author Organization [facility] Address [address] [place] [address] Care Team Providers Care Relief Pilot Name Role Phone John Schaefer Primary Care Provider [phone] Melissa Barron MD Unavailable Eli Echevarria MA Unavailable Unavailable Reason for Visit * Reason Onset Date Comments Other 08/17/2022 Encounter Details Date Type Department Care Team (Late Contact Info) Description 08/17/2022 Telephone [facility] [address] [place] [address] [address] [place] [address] Eli Echevarria MA Other Social History [...] EST Treatment [facility] [address] [place] [address], 2nd [address], [address] [place] [address] Yue Kendrick MD [address] [place] [address] [place] [address] documented as of this encounter Visit Diagnoses Not on filedocumented in this encounter Care Teams Relief Pilot Relationship Specialty Start Date End Date John Schaefer DO [address] [place] [phone] PCP - General Family Medicine 01/24/10 Melissa Barron MD [address] [place] [address] Pulmonary Disease 06/16/22 Eli Echevarria MA 08/11/22 documented as of this encounter
--- OUTSIDE RECORDS SUMMARY | 2025-07-30 10:42 | XMS_ITS | Encounter Summary ---
Author Organization [facility] Address [address] [place] [address] Care Team Providers Care Marble Rubber Name Role Phone John Schaefer DO Primary Care Provider Melissa Barron MD Unavailable Eli Echevarria MA Unavailable Unavailable Encounter Details Date Type Department Care Team (Late st Contact Info) Description 11/13/2005 Historical Encounter [facility] Mcgill MD [address] [facility] [place] [phone] Social History Tobacco Use Types Packs/Day Years [...] EST Treatment [facility] [address] A, 2nd Floor, [address] [place] [address] Yue Kendrick MD [address] [facility] [address] A 2ND FLOOR [place], [place] [id number] documented as of this encounter Visit Diagnoses Not on filedocumented in this encounter Care Teams Marble Rubber Relationship Specialty Start Date End Date John Schaefer DO [address] [place] [address] PCP - General Family Medicine 01/24/10 Melissa Barron MD [address] [place] [address] Pulmonary Disease 06/16/22 Eli Echevarria MA 08/11/22 documented as of this encounter
--- OUTSIDE RECORDS SUMMARY | 2025-07-30 10:42 | XMS_ITS | Encounter Summary ---
Author Organization [facility] Address [address] [place] [address] Care Team Providers Care Shipwright Apprentice Name Role Phone HollisJohn bautista Primary Care Provider Melissa Barron MD Unavailable Eli Echevarria MA Unavailable Unavailable Reason for Visit * Reason Onset Date Comments Medication - Prior Authorization 06/08/2011 Encounter Details Date Type Department Care Team (Late st Contact Info) Description 06/08/2011 Telephone [facility] [address] [place] [phone] Arash Kim MD [address] [place] [address] Medication - Prior Authorization Social History Tobacco [...] XL and it needs a pa from [facility] #[phone] documented in this encounter Plan of Treatment Upcoming Encounters Date Type Department Care Team (Late st Contact Info) Description 09/06/2025 2:00 PM EST Treatment [facility] [address] A, 2nd Floor, [address] [place] [address] Yue Kendrick MD [address] [facility] [address] FLOOR [place], [place] [address] documented as of this encounter Visit Diagnoses Not on filedocumented in this encounter Care Teams Shipwright Apprentice Relationship Specialty Start Date End Date John Schaefer DO [address] [place] [phone] PCP - General Family Medicine 01/24/10 Melissa Barron MD [address] [place] [phone] Pulmonary Disease 06/16/22 Eli Echevarria MA 08/11/22 documented as of this encounter
--- OUTSIDE RECORDS SUMMARY | 2025-07-30 10:42 | XMS_ITS | Clinical Summary ---
Author Organization [facility] Address [address] [place] [address] Care Team Providers Care Jockey Agent Name Role Phone Unavailable Primary Care Provider Unavailabl e Immunizations Immunization Administration Dates Next Due Influenza, injectable, quadrivalent, preservativ e free 05/16/2017 Family History Medical History Relation Name Comments Conversions - Other Brother CAD (cor onary artery disease), [place] coronary artery Other cancer Father Conversions - Other Mother CAD (cor onary artery disease), [place] coronary artery Other cancer Sister Relation Name [...] 2011 UKY-Zoster Vaccines (1 of 2) 2011 [id number] Vaccine ( - 20 25-26 season) 2025 [...]
--- OUTSIDE RECORDS SUMMARY | 2025-07-30 10:42 | XMS_ITS | Clinical Summary ---
Author Organization [facility] Address [address] [place] [address] Phone Care Team Providers Care Avid Editor Name Role Phone Unavailable Primary Care Provider [...] [place] [address] [employer] PPO P[place] MEDICARE [place] PART A AND B Member Subscriber Plan / Payer (Ef fective 2007-Present) Name:Marvin Davis Member ID:[id number] Relation to Subscriber:Self Name:Marvin Davis Subscriber ID:[id number] Payer ID:Not on file Group ID:Not on file Type:Not on file Address: [address] [id number] [employer] P[place] MED[place]ARE [place] PART A AND B [address]
--- OUTSIDE RECORDS SUMMARY | 2025-07-30 10:42 | XMS_ITS | Encounter Summary ---
Author Organization [facility] Address [address] [place] [address] Care Team Providers Care Stull Hewer Name Role Phone JudeJohn rodriguez Primary Care Provider [phone] Melissa Barron MD Unavailable Eli Echevarria MA Unavailable Unavailable Encounter Details Date Type Department Care Team (Late st Contact Info) Description 08/21/2010 Refill [facility] [address] [place] [address] Arash Kim MD [address] [place] [address] Social History Tobacco Use Types Packs/Day Years [...] Miscellaneous Notes * Telephone Encounter - Kalie Newman - 08/21/2010 2:[address] Kim changed his coreg to 12.5 1 twice a day, but it was never sent to [facility], I don't think they e-script. documented in this encounter Plan of Treatment Upcoming Encounters Date Type Department Care Team (Late st Contact Info) Description 09/06/2025 2:00 PM EST Treatment [facility] [address] [place] [address] A, 2nd Floor, [address] [place] [address] Yue Kendrick MD [address] [facility] [address] [place] [address] [place] [address] documented as of this encounter Visit Diagnoses Diagnosis CAD (coronary artery disease) Coronary atherosclerosis of unspecified type of vessel, jackson or graft Bradycardia Other specified cardiac dysrhythmias Coronary atherosclerosis of jackson coronary artery HTN (hypertension), benign Essential hypertension, benign Carotid artery stenosis Occlusion and stenosis of carotid artery without mention of cerebral infarction HLD (hyperlipidemia) Other and unspecified hyperlipidemia Lumbago Angina Other and unspecified angina pectoris PAD (peripheral artery disease) Peripheral vascular disease, unspecified PVD (peripheral vascular disease) with claudication Peripheral vascular disease, unspecified documented in this encounter Care Teams Stull Hewer Relationship Specialty Start Date End Date John Schaefer DO [address] [place] [phone] PCP - General Family Medicine 01/24/10 Melissa Barron MD [address] [place] [address] Pulmonary Disease 06/16/22 Eli Echevarria MA 08/11/22 documented as of this encounter
--- OUTSIDE RECORDS SUMMARY | 2025-07-30 10:42 | XMS_ITS | Encounter Summary ---
Author Organization [facility] Address [address] [place] [address] Care Team Providers Care Children'S Program Coordinator Name Role Phone John Schaefer Primary Care Provider [phone] Melissa Barron MD Unavailable Eli Echevarria MA Unavailable Unavailable Encounter Details Date Type Department Care Team (Late Contact Info) Description 06/14/2012 Telephone [facility] [address], [address] [place] [address] Amanda Wang LPN Social History [...] [facility] [address] [facility], 2nd Floor, [address] [place] [address] Yue Kendrick MD [address] [place] 2ND [place] [address] documented as of this encounter Visit Diagnoses Not on filedocumented in this encounter Care Teams Children'S Program Coordinator Relationship Specialty Start Date End Date John Schaefer DO [address] [place] [phone] PCP - General Family Medicine 01/24/10 Melissa Barron MD [address] [place] [address] Pulmonary Disease 06/16/22 Eli Echevarria MA 08/11/22 documented as of this encounter
--- OUTSIDE RECORDS SUMMARY | 2025-07-30 10:42 | XMS_ITS | Encounter Summary ---
Author Organization [facility] Address [address] [place] [address] Care Team Providers Care Pulmonology Technician Name Role Phone John Schaefer Primary Care Provider [phone] Melissa Barron MD Unavailable Eli Echevarria MA Unavailable Unavailable Encounter Details Date Type Department Care Team (Late Contact Info) Description 11/11/2010 Refill [facility] [address] [place] [address] Arash Kim MD [address] [place] [address] Social History Tobacco Use Types [...] Treatment [facility] [address] [facility] A, [address]nd Floor, [address] [place] [address] Yue Kendrick MD [address] [facility] [place] [address] [place] [address] documented as of this encounter Visit Diagnoses Diagnosis CAD (coronary artery disease) Coronary atherosclerosis of unspecified type of vessel, [place] or graft Bradycardia Other specified cardiac dysrhythmias Coronary atherosclerosis of [place] coronary artery HTN (hypertension), benign Essential hypertension, benign Carotid artery stenosis Occlusion and stenosis of carotid artery without mention of cerebral infarction HLD (hyperlipidemia) Other and unspecified hyperlipidemia Lumbago Angina Other and unspecified angina pectoris PAD (peripheral artery disease) Peripheral vascular disease, unspecified PVD (peripheral vascular disease) with claudication Peripheral vascular disease, unspecified documented in this encounter Care Teams Pulmonology Technician Relationship Specialty Start Date End Date John Schaefer DO [address] [place] [phone] PCP - General Family Medicine 01/24/10 Melissa Barron MD [address] [place] [address] Pulmonary Disease 06/16/22 Eli Echevarria MA 08/11/22 documented as of this encounter
--- OUTSIDE RECORDS SUMMARY | 2025-07-30 10:42 | XMS_ITS | Encounter Summary ---
Author Organization [facility] Address [address] [id number] Care Team Providers Care Geosciences Faculty Member Name Role Phone John Schaefer Primary Care Provider [phone] Melissa Barron MD Unavailable Eli Echevarria MA Unavailable Unavailable Reason for Referral * Radiology Services (Routine) - Closed Specialty Diagnoses / Procedures Referred By Contac t Referred To Contact Radiology Diagnoses Personal history of tobacco use, presenting hazards to health Procedures CT LUNG ELIGIBLE LOW DOSE SCREENING Melissa Barron MD [address] [place] [address] Phone: tel: fax: [facility]- CT [address] [place] [phone] Phone: tel: Referral ID Status Reason Start Date Expiration Date Visits Re quested Visits Authorized [id number] Closed 08/05/2022 08/05/2023 1 1 Encounter Details Date Type Department Care Team (Late st Contact Info) Description 08/05/2022 Orders Only [facility] [address] [place], [place] [phone] Melissa Barron MD [address] [place] [address] Personal history of tobacco use, presenting hazards [...] EST Treatment [facility] [address] [place] [address], 2nd Floor, [address] [place] [address] Yue Kendrick MD [address] [place] [address] [place] 2[address] [place] [address] documented as of this encounter Results * CT LUNG ELIGIBLE LOW DOSE SCREENING (09/04/2022 2:34 PM EST) Anatomical Region Laterality Modality Chest Computed Tomogra phy 09/04/2022 Narrative 09/08/2022 8:42 AM EST [facility] [address] [place] [address] Radiology PATIENT NAME: Marvin Staton MR#: [id number] PROCEDURE DATE: 09/04/2022 ROOM#: ORDERING PHYS: Melissa [...] Guerrero MD cyrus TD: 10/01/2022 JOB #: [id number] Radiology Page 1 of 1 COPY Procedure Note Nathanael Van MD - 10/01/2022 [place] [address] Radiology PATIENT NAME: Marvin Staton MR#: [id number] PROCEDURE DATE: 09/04/2022 ROOM#: ORDERING PHYS: Torres [...] Guerrero MD cyrus TD: 10/01/2022 JOB #: [id number] Radiology Page 1 of 1COPY Melissa Barron MD IMG CT ORDERABLES Edited Result - Final documented in this encounter Visit Diagnoses Diagnosis Personal history of tobacco use, presenting hazards to health- Primary Personal history of tobacco use, presenting hazards to health documented in this encounter Care Teams Geosciences Faculty Member Relationship Specialty Start Date End Date John Schaefer DO [address] [place] [phone] PCP - General Family Medicine 01/24/10 Melissa Barron MD [address] [place] [address] Pulmonary Disease 06/16/22 Eli Echevarria MA 08/11/22 documented as of this encounter
--- OUTSIDE RECORDS SUMMARY | 2025-07-30 10:42 | XMS_ITS | Encounter Summary ---
Author Organization [facility] Address [address] [place] [address] Care Team Providers Care Community Relations Representative Name Role Phone John Schaefer Primary Care Provider [phone] Melissa Barron MD Unavailable Eli Echevarria MA Unavailable Unavailable Encounter Details Date Type Department Care Team (Late st Contact Info) Description 05/20/2020 Telephone [facility] [address] [facility], 2nd Floor, [address] [place] [address] Yue Kendrcik MD [address] [place] [address] Social History Tobacco Use Types Packs/Day Years [...] [facility] [address] [facility], 2nd Floor, [address] [place] [address] Yue Kendrick MD [address] [place] [address] documented as of this encounter Visit Diagnoses Not on filedocumented in this encounter Care Teams Community Relations Representative Relationship Specialty Start Date End Date Shelton SchaefermyDO [address] [place] [phone] PCP - General Family Medicine 01/24/10 Melissa Barron MD [address] [place] [address] Pulmonary Disease 06/16/22 Eli Echevarria MA 08/11/22 documented as of this encounter
--- OUTSIDE RECORDS SUMMARY | 2025-07-30 10:42 | XMS_ITS | Encounter Summary ---
Author Organization [facility] Address [address] [phone] Care Team Providers Care Dormitory Maid Name Role Phone John Schaefer Primary Care Provider [phone] Melissa Barron MD Unavailable Eli Echevarria MA Unavailable Unavailable Reason for Visit * Reason Onset Date Comments Other 08/18/2024 Encounter Details Date Type Department Care Team (Late st Contact Info) Description 08/18/2024 Telephone [facility] [address] [place] [address] Faiza Wesley, RN Other Social History Tobacco [...] they can't seem to get it but [facility] has it in stock but they need the Doctor to send the prescription to send it to the pharmacy documented in this encounter Plan of Treatment Upcoming Encounters Date Type Department Care Team (Late st Contact Info) Description 09/06/2025 2:00 PM EST Treatment [facility] [address] [place] [address] A, 2nd Floor, [address] [place] [address] Yue Kendrick MD [address] [facility] [address] 2[address] [place] [address] documented as of this encounter Visit Diagnoses Not on filedocumented in this encounter Care Teams Dormitory Maid Relationship Specialty Start Date End Date John Schaefer DO [address] [place] [phone] PCP - General Family Medicine 01/24/10 Melissa Barron MD [address] [place] [address] Pulmonary Disease 06/16/22 Eli Echevarria MA 08/11/22 documented as of this encounter
--- OUTSIDE RECORDS SUMMARY | 2025-07-30 10:42 | XMS_ITS | Encounter Summary ---
Author Organization [facility] Address [address] [place] [address] Care Team Providers Care Strategy Lead Name Role Phone JudeJohn rodriguez Primary Care Provider [phone] Melissa Barron MD Unavailable Eli Echevarria MA Unavailable Unavailable Encounter Details Date Type Department Care Team (Late Contact Info) Description 08/21/2024 Refill [facility] [address] [place] [address], 2nd Floor, [address] [place] [address] Jessica Ramirez RN Osteoarthritis of [...] 9:19 AM EST Medication needs sent to [facility] medication. Alan last filled 07/17/2024. documented in this encounter Plan of Treatment Upcoming Encounters Date Type Department Care Team (Late Contact Info) Description 09/06/2025 2:00 PM EST Treatment [facility] [address] A, 2nd Floor, [address] [place] [address] Yue Kendrick MD [address] [facility] 2ND FLOOR [place], [place] [id number] documented as of this encounter Visit Diagnoses Diagnosis Osteoarthritis of spine with radiculopathy, lumbar region documented in this encounter Care Teams Strategy Lead Relationship Specialty Start Date End Date John Schaefer DO [address] [place] [phone] PCP - General Family Medicine 01/24/10 Melissa Barron MD [address] [place], [place] [address] [place] [address] Pulmonary Disease 06/16/22 Eli Echevarria MA 08/11/22 documented as of this encounter
--- OUTSIDE RECORDS SUMMARY | 2025-07-30 10:42 | XMS_ITS | Encounter Summary ---
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 [facility] [place] A, 2nd Floor, [address] [place] [address] Yue Kendrick MD [address] [facility] A 2ND FLOOR [place], [place] [id number] documented as of this encounter Visit Diagnoses Not on filedocumented in this encounter Care Teams Engineering Officer Relationship Specialty Start Date End Date John Schaefer DO [address] [place] [phone] PCP - General Family Medicine 01/24/10 Melissa Barron MD [address] [place], [place] [address] [place] [address] Pulmonary Disease 06/16/22 Eli Echevarria MA 08/11/22 documented as of this encounter
--- OUTSIDE RECORDS SUMMARY | 2025-07-30 10:42 | XMS_ITS | Encounter Summary ---
Author Organization [facility] Address [address] [place] [address] Care Team Providers Care Avionics Mechanic Name Role Phone John Schaefer DO Primary Care Provider [phone] Melissa Barron MD Unavailable Eli Echeavrria MA Unavailable Unavailable Encounter Details Date Type [...] [facility] [address] [facility] A, 2nd Floor, [address] [place] [address] Yue Kendrick MD [address] [facility] A 2ND FLOOR [place], [place] [id number] documented as of this encounter Visit Diagnoses Not on filedocumented in this encounter Care Teams Avionics Mechanic Relationship Specialty Start Date End Date John Schaefer DO [address] [place] [phone] PCP - General Family Medicine 01/24/10 Melissa Barron MD [address] [place] [address] Pulmonary Disease 06/16/22 Eli Echevarria MA 08/11/22 documented as of this encounter
--- OUTSIDE RECORDS SUMMARY | 2025-07-30 10:42 | XMS_ITS | Encounter Summary ---
Author Organization [facility] Address [address] [place] [address] Care Team Providers Care Soft Drink Powder Mixer Name Role Phone JudeJohn rodriguez Primary Care Provider [phone] Melissa Barron MD Unavailable Eli Echevarria MA Unavailable Unavailable Reason for Visit * Reason Onset Date Comments Medication - Prior Authorization 05/07/2016 Encounter Details Date Type Department Care Team (Late st Contact Info) Description 05/07/2016 Telephone [facility] [address], [address] [place] [address] Yue Kendrick MD [address] [facility] [address] [place] [address] [address] Medication - Prior Authorization Social History Tobacco [...] Treatment [facility] [address] [place] [address] A, 2nd Floor, [address] [place] [address] Yue Kendrick MD [address] [place] [address] [place] [address] documented as of this encounter Visit Diagnoses Not on filedocumented in this encounter Care Teams Soft Drink Powder Mixer Relationship Specialty Start Date End Date John Schaefer DO [address] [place] [phone] PCP - General Family Medicine 01/24/10 Melissa Barron MD [address] [place] [address] Pulmonary Disease 06/16/22 Eli Echevarria MA 08/11/22 documented as of this encounter
--- OUTSIDE RECORDS SUMMARY | 2025-07-30 10:42 | XMS_ITS | Encounter Summary ---
Author Organization [facility] Address [address] [phone] Care Team Providers Care Pharmacy Manager Name Role Phone John Schaefer Primary Care Provider [phone] Melissa Barron MD Unavailable Eli Echevarria MA Unavailable Unavailable Reason for Visit * Reason Onset Date Comments Medications Refill 09/16/2011 Encounter Details Date Type Department Care Team (Late st Contact Info) Description 09/16/2011 Refill [facility] [address], [address] [place] [phone] Amanda Wang LPN HNP (herniated nucleus pulposus); [...] EST Treatment [facility] [address] A, 2nd Floor, [address] [place] [address] Yue Kendrick MD [address] [facility] MED [address] [place] [address] [address] documented as of this encounter Visit Diagnoses Diagnosis HNP (herniated nucleus pulposus) Displacement of intervertebral disc, site unspecified, without myelopathy Lumbar spondylosis Lumbosacral spondylosis without myelopathy documented in this encounter Care Teams Pharmacy Manager Relationship Specialty Start Date End Date John Schaefer DO [address] [place] [phone] PCP - General Family Medicine 01/24/10 Melissa Barron MD [address] [place] [address] Pulmonary Disease 06/16/22 Eli Echevarria MA 08/11/22 documented as of this encounter
--- OUTSIDE RECORDS SUMMARY | 2025-07-30 10:42 | XMS_ITS | Encounter Summary ---
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 [facility], 2nd Floor, [address] [place] [address] Yue Kendrick MD [address] [facility] [address] [place] [address] [address] documented as of this encounter Visit Diagnoses Not on filedocumented in this encounter Care Teams Hydro Station Supervisor Relationship Specialty Start Date End Date John Schaefer DO [address] [place] [phone] PCP - General Family Medicine 01/24/10 Melissa Barron MD [address] [place] [address] Pulmonary Disease 06/16/22 Eli Echevarria MA 08/11/22 documented as of this encounter
--- OUTSIDE RECORDS SUMMARY | 2025-07-30 10:42 | XMS_ITS | Encounter Summary ---
Author Organization [facility] Address [address] [place] [address] Care Team Providers Care Product Safety Professional Name Role Phone John Schaefer Primary Care Provider [phone] Melissa Barron MD Unavailable Eli Echevarria MA Unavailable Unavailable Encounter Details Date Type Department Care Team (Late Contact Info) Description 09/14/2012 Telephone [facility] [address], [address] [place] [address] Amanda Wang LPN Social History [...] [facility] [address] [facility], 2nd Floor, [address] [place] [address] Yue Kendrick MD [address] [address] documented as of this encounter Visit Diagnoses Not on filedocumented in this encounter Care Teams Product Safety Professional Relationship Specialty Start Date End Date John Schaefer DO [address] [place] [phone] PCP - General Family Medicine 01/24/10 Melissa Barron MD [address] [place] [address] Pulmonary Disease 06/16/22 Eli Echevarria MA 08/11/22 documented as of this encounter
--- OUTSIDE RECORDS SUMMARY | 2025-07-30 10:42 | XMS_ITS | Encounter Summary ---
Author Organization [facility] Address [address] [id number] Care Team Providers Care Supervisor Scouring Pads Name Role Phone John Schaefer Primary Care Provider [phone] Melissa Barron MD Unavailable Eli Echevarria MA Unavailable Unavailable Reason for Visit * Reason Onset Date Comments Medication - Prior Authorization 05/11/2016 Encounter Details Date Type Department Care Team ([facility] Contact Info) Description 05/11/2016 Telephone [facility] [address], [address] [place] [phone] Minerva Faust, prism measurer - Prior Authorization Social History Tobacco Use [...] Treatment [facility] [address] A, 2nd Floor, [address] [place] [address] Yue Kendrick MD [address] [facility] [address] A 2ND FLOOR [place], [place] [address] documented as of this encounter Visit Diagnoses Not on filedocumented in this encounter Care Teams Supervisor Scouring Pads Relationship Specialty Start Date End Date John Schaefer DO [address] [place] [phone] PCP - General Family Medicine 01/24/10 Melissa Barron MD [address] [place] [address] [address] [place] [address] Pulmonary Disease 06/16/22 Eli Echevarria MA 08/11/22 documented as of this encounter
--- OUTSIDE RECORDS SUMMARY | 2025-07-30 10:42 | XMS_ITS | Encounter Summary ---
Author Organization [facility] Address [address] [phone] Care Team Providers Care Ballet Company Member Name Role Phone JudeJohn rodriguez Primary Care Provider [phone] Melissa Barron MD Unavailable Eli Echevarria MA Unavailable Unavailable Encounter Details Date Type Department Care Team (Late Contact Info) Description 09/18/2011 Telephone 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 [facility], 2nd Floor, [address] [place] [address] Yue Kendrick MD [address] [facility] [address] [place] 2[place] [address] documented as of this encounter Visit Diagnoses Not on filedocumented in this encounter Care Teams Ballet Company Member Relationship Specialty Start Date End Date John Schaefer DO [address] [place] [phone] PCP - General Family Medicine 01/24/10 Melissa Barron MD [address] [place] [address] Pulmonary Disease 06/16/22 Eli Echevarria MA 08/11/22 documented as of this encounter
--- OUTSIDE RECORDS SUMMARY | 2025-07-30 10:42 | XMS_ITS | Encounter Summary ---
Author Organization [facility] Address [address] [place] [address] Care Team Providers Care Patient Sitter Name Role Phone John Schaefer Primary Care Provider [phone] Melissa Barron MD Unavailable Eli Echevarria MA Unavailable Unavailable Reason for Visit * Reason Onset Date Comments Medications Refill 12/04/2011 Encounter Details Date Type Department Care Team (Late Contact Info) Description 12/04/2011 Refill [facility] [address] [place] [phone] Arash Kim MD [address] [place] [address] Medications Refill Social History Tobacco Use Types [...] [facility] [address] [facility], 2nd Floor, [address] [place] [address] Yue Kendrick MD [address] [facility] [address] A 2ND FLOOR [place], [place] [phone] documented as of this encounter Visit Diagnoses Not on filedocumented in this encounter Care Teams Patient Sitter Relationship Specialty Start Date End Date John Schaefer DO [address] [place] [phone] PCP - General Family Medicine 01/24/10 Melissa Barron MD [address] [place] [phone] Pulmonary Disease 06/16/22 Eli Echevarria MA 08/11/22 documented as of this encounter
--- OUTSIDE RECORDS SUMMARY | 2025-07-30 10:42 | XMS_ITS | Encounter Summary ---
Author Organization [facility] Address [address] [id number] Care Team Providers Care Steel Pan Form Placing Supervisor Name Role Phone John Schaefer Primary Care Provider [phone] Melissa Barron MD Unavailable Eli Echevarria MA Unavailable Unavailable Reason for Visit * Reason Onset Date Comments Medications Refill 12/10/2010 Encounter Details Date Type Department Care Team (Late Contact Info) Description 12/10/2010 Refill [facility] [address], [address] [place] [address] Amanda Wang LPN HNP (herniated [...] EST Treatment [facility] [address] [place] [address] A, [address], [address] [place] [address] Yue Kendrick MD [address] [facility] [address] [place] [address] documented as of this encounter Visit Diagnoses Diagnosis HNP (herniated nucleus pulposus) Displacement of intervertebral disc, site unspecified, without myelopathy Lumbar spondylosis Lumbosacral spondylosis without myelopathy documented in this encounter Care Teams Steel Pan Form Placing Supervisor Relationship Specialty Start Date End Date John Schaefer DO [address] [place] [phone] PCP - General Family Medicine 01/24/10 Melissa Barron MD [address] [place] [address] Pulmonary Disease 06/16/22 Eli Echevarria MA 08/11/22 documented as of this encounter
--- OUTSIDE RECORDS SUMMARY | 2025-07-30 10:42 | XMS_ITS | Encounter Summary ---
Author Organization [facility] Address [address] [place] [address] Care Team Providers Care Composition Teacher Name Role Phone JudeJohn rodriguez Primary Care Provider [phone] Melissa Barron MD Unavailable Eli Echevarria MA Unavailable Unavailable Reason for Visit * Reason Onset Date Comments Medication - Prior Authorization 12/22/2016 Encounter Details Date Type Department Care Team (Late st Contact Info) Description 12/22/2016 Telephone [facility] [address], [address] [place] [address] Yue Kendrick MD [address] [facility] [address] [place] [address] Medication - Prior Authorization Social History Tobacco [...] Treatment [facility] [address] [place] [address] A, [address] Floor, [address] [place] [address] Yue Kendrick MD [address] [facility] [address] [place] [address] documented as of this encounter Visit Diagnoses Not on filedocumented in this encounter Care Teams Composition Teacher Relationship Specialty Start Date End Date John Schaefer DO [address] [place] [phone] PCP - General Family Medicine 01/24/10 Melissa Barron MD [address] [place], [place] [address] [place] [address] Pulmonary Disease 06/16/22 Eli Echevarria MA 08/11/22 documented as of this encounter
--- OUTSIDE RECORDS SUMMARY | 2025-07-30 10:42 | XMS_ITS | Encounter Summary ---
Author Organization [facility] Address [address] [place] [address] Care Team Providers Care Nurse Midwife/Clinical Instructor Name Role Phone John Schaefer Primary Care Provider [phone] Melissa Barron MD Unavailable Eli Echevarria MA Unavailable Unavailable Reason for Visit * Reason Onset Date Comments Other 08/05/2022 Needing new orde r Encounter Details Date Type Department Care Team (Late st Contact Info) Description 08/05/2022 Telephone Centralized Scheduling 1 [facility]. [place] [phone] Melissa Barron MD [address] [place] [address] Other (Needing new order ) Social History [...] date of 08/30/22. Any questions, please call [phone] Thanks documented in this encounter Plan of Treatment Upcoming Encounters Date Type Department Care Team (Late st Contact Info) Description 09/06/2025 2:00 PM EST Treatment [facility] [address] [facility] [address], [address] Floor, [address] [place] [address] Yue Kendrick MD [address] [place] [address] documented as of this encounter Visit Diagnoses Not on filedocumented in this encounter Care Teams Nurse Midwife/Clinical Instructor Relationship Specialty Start Date End Date John Schaefer DO [address] [place] [phone] PCP - General Family Medicine 01/24/10 Melissa Barron MD [address] [place] [id number] Pulmonary Disease 06/16/22 Eli Echevarria MA 08/11/22 documented as of this encounter
--- OUTSIDE RECORDS SUMMARY | 2025-07-30 10:42 | XMS_ITS | Encounter Summary ---
Author Organization [facility] Address [address] [phone] Care Team Providers Care Final Canoe Inspector Name Role Phone JudeJohn rodriguez Primary Care Provider [phone] Melissa Barron MD Unavailable Eli Echevarria MA Unavailable Unavailable Reason for Visit * Reason Onset Date Comments Medications Refill 06/12/2011 Encounter Details Date Type Department Care Team (Late st Contact Info) Description 06/12/2011 Refill [facility] [address], [address] [place] [id number] Amanda Wang LPN HNP (herniated nucleus pulposus); [...] EST Treatment [facility] [address] [address], [address] Floor, [address] [place] [address] Yue Kendrick MD [address] [facility] [address] [place], [place] [id number] documented as of this encounter Visit Diagnoses Diagnosis HNP (herniated nucleus pulposus) Displacement of intervertebral disc, site unspecified, without myelopathy Lumbar spondylosis Lumbosacral spondylosis without myelopathy documented in this encounter Care Teams Final Canoe Inspector Relationship Specialty Start Date End Date John Schaefer DO [address] [place] [phone] PCP - General Family Medicine 01/24/10 Melissa Barron MD [address] [place] [phone] Pulmonary Disease 06/16/22 Eli Echevarria MA 08/11/22 documented as of this encounter
== END 2025-07-30 23:59 | disposition home or self-care (01) ==
LOC: LAB 10:34
PROVIDERS: PCP Family Medicine; Visit Provider Nurse Practitioner Family
DX: E78.2 Mixed hyperlipidemia (principal); I11.9 Hypertensive heart disease without heart failure; I65.23 Occlusion and stenosis of bilateral carotid arteries
CPT/HCPCS: 82384; 83835; 84585